=== PATIENT | male | born 1995 ===

== ENCOUNTER 2020-09-29 20:45 | Emergency (ER) | payer OTHER, SELFPAY ==
[2020-09-29 21:07] VITALS: BP 137/89; PULSE 83; RESP 18; TEMP 36.8; O2SAT 97; BMI 33.7
[2020-09-29 21:27] VITALS: BP 137/89; PULSE 83; RESP 18; TEMP 36.8; O2SAT 97
[2020-09-29 21:38] LABS: Glucose Urine UA NEG (NEG); Leukocyte Esterase Urine NEG (NEG); Nitrite Urine NEG (NEG); Specific Gravity - Urine >= 1.030 (1.005-1.025); Urine Blood NEG (NEG); Urine Ketones NEG (NEG); Urine Protein TRACE MG/DL (NEG-TRACE)
[2020-09-29 21:39] LABS: Appearance Urine CLEAR; Color Urine YELLOW
[2020-09-29 21:47] LABS: COVID-19 Test Negative (Negative); IDNOW Serial# 9DD0AD1C
--- NOTE | 2020-09-29 22:22 | ED_ITS ---
HPI - Abdominal Pain General Chief Complaint: Abdominal Pain Stated Complaint: Fever Time Seen by Provider: 09/29/20 21:03 Source: patient Mode of arrival: ambulatory Limitations: no limitations History of Present Illness HPI narrative: Patient had a low-grade fever earlier today and right lower abdominal pain no cough no shortness of breath status post appendectomy. Patient was at work around noon time noticed right lower abdominal cramping pain no nausea no vomiting came home went to bed and felt sweaty checked his temperature was 101 degrees no urinary complaints . Patient denies any COVID symptoms. Had mild headache MD elicited complaint: abdominal pain Related Data Allergies Allergy/AdvReac Type Severity Reaction Status Date / Time amoxicillin [AMOXICILLIN] Allergy Mild HIVES Unverified 03/08/20 16:24 Penicillins [PENICILLINS] Allergy Mild HIVES Unverified 03/08/20 16:24 penicillin V Allergy Unknown Verified 09/17/12 00:00 Review of Systems Review of Systems Constitutional : No Weight loss, +Fever, No Chills ENT/Mouth : No sore throat, No Rhinorrhea Eyes: No Eye Pain, No Swelling Cardiovascular : No Chest Pain, no palpitations Respiratory : No Cough, No Sputum, no shortness of breath Gastrointestinal : no Nausea, No Vomiting, No Diarrhea, + abdominal Pain, no black stools Genitourinary : No Dysuria, No Urinary Frequency Musculoskeletal : No joint pain, No Myalgias, No Joint Swelling Skin : No Skin Lesions, No rash Neuro : No Weakness, No Numbness, No Dizziness, + Headache Psych : No Anxiety/Panic, No Depression Heme/Lymph: No Bruising, No Lymphadenopathy Endocrine : No Polyuria, No Polydipsia All other systems reviewed and are negative Physical Exam Vital Signs: Vital Signs: Last Vital Signs Temp 98.3 F 09/29/20 21:27 Pulse 83 09/29/20 21:27 Resp 18 09/29/20 21:27 BP 137/89 09/29/20 21: Pulse Ox 97 09/29/20 21:27 Body Mass Index 33.7 Appearance: Alert. Oriented X3. No acute distress. Eyes: Pupils equal, round and reactive to light. ENT: Pharynx normal. Neck: Normal inspection. Neck supple. CVS: Normal heart rate and rhythm. Pulses normal. Respiratory: No respiratory distress. Breath sounds normal. Abdomen: Soft mild deep tenderness right lower quadrant no guarding or rebound tenderness Bowel sounds are present, no mass palpable, no CVA tenderness Skin: Skin warm and dry. Normal skin color. Normal skin turgor. Extremities: No lower extremity edema. Neuro: Oriented X 3. No motor deficit. No sensory deficit. MDM - Abdominal Pain MDM Narrative Medical decision making narrative: Patient UA negative COVID-19 negative status post appendectomy came with right lower quadrant pain with low-grade fever at t his time patient afebrile no significant abdominal pain noticed patient refused further lab work at this time as the feeling back to normal. Patient advised to follow with PCP or come to the ER if pain recurs or get worse Lab Data Attestation: I reviewed the patient's lab results. Labs: Lab Results 09/29/20 09/29/20 Range/Units 21:07 21:29 Urine Color YELLOW Urine Appearance CLEAR Urine pH 6.0 (5.0-8.0) Ur Specific [place] >= 1.030 H (1.005-1.025) Urine Protein TRACE (NEG-TRACE) MG/DL Urine Glucose (UA) NEG (NEG) MG/DL Urine Ketones NEG (NEG) MG/DL Urine Blood NEG (NEG) Urine Nitrite NEG (NEG) Ur Leukocyte Esterase NEG (NEG) COVID-19 ([facility]) Negative (Negative) COVID-19 Clin Com See Note Discharge Plan Discharge Clinical Impression: Abdominal pain Patient Disposition: Home, Self-Care Instructions: Abdominal Pain (ED) Additional Instructions: Etiology of abdominal pain is not very clear no cramps. Report to the ER/PCP if pain recurs or get worse/vomiting Your COVID test is negative Stand Alone Forms: Work/School Release Interventions: ED Discharge Assessment Last Done: 09/29/20 22:41 Discharge Date/Time: 09/29/20 22:42 [facility] Past Medical History Surgical History History of appendectomy Social History Social History Alcohol intake: never Smoking Status: Never smoker Use of substances other than those prescribed or required for medical reasons: No Advance Directives: No Advance Directives Information Provided: Yes
== END 2020-09-29 22:42 | disposition home or self-care (01) ==
PROVIDERS: Emergency Provider Internal Medicine; PCP Internal Medicine
DX: R10.31 Right lower quadrant pain (principal); Z20.822 Contact with and (suspected) exposure to COVID-19; R50.9 Fever, unspecified
CPT/HCPCS: 36415; 81003; 87635; 99283; 99284

== ENCOUNTER 2020-10-21 08:34 | Emergency (ER) | payer OTHER, SELFPAY ==
[2020-10-21 09:01] VITALS: BP 131/69; PULSE 100; RESP 18; TEMP 36.5; O2SAT 97; BMI 34.9
--- NOTE | 2020-10-21 09:33 | ED.BACK ---
HPI - Back Pain/Injury General Chief Complaint: Back Pain/Injury Stated Complaint: back pain Time Seen by Provider: 10/21/20 09:33 History of Present Illness HPI Narrative: Patient developed right-sided low back pain similar to prior episodes over the past few days with no known injury, pain radiates to the right upper thigh, no numbness no weakness no changes to bowel or bladder no chest pain no abdominal pain no dysuria Related Data Previous Rx's Medication Instructions Recorded acetaminophen 1,000 mg PO Q6H PRN #30 tab 10/21/20 cyclobenzaprine 5 mg PO TID PRN #14 tab 10/21/20 ibuprofen 600 mg PO Q6H PRN #20 tab 10/21/20 oxycodone 5 mg PO Q6H PRN #10 tab 10/21/20 prednisone 60 mg PO DAILY 4 Days #12 tab 10/21/20 Allergies Allergy/AdvReac Type Severity Reaction Status Date / Time amoxicillin [AMOXICILLIN] Allergy Mild HIVES Verified 10/21/20 09:03 Penicillins [PENICILLINS] Allergy Mild HIVES Verified 10/21/20 09:03 penicillin V Allergy Unknown Swelling Verified 10/21/20 09:03 Review of Systems Review of Systems: Positive for back pain Negatives are no fever no chills no dizziness no weakness no fainting no chest pain no abdominal pain no dysuria no frequency no incontinence no changes to bowel or bladder known numbness or weakness Yes all other systems are reviewed and are negative [facility] Past Medical History Attestation statement: The following information was validated with the patient. [facility] Narrative: Patient had a prior episode of similar back pain 2 years ago after a fall at work Source: nursing notes reviewed Surgical History History of appendectomy Social History Social History Alcohol intake: never Smoking Status: Never smoker Advance Directives: No Advance Directives Information Provided: No Physical Exam Vital Signs: Vital Signs: Last Vital Signs Temp 97.7 F 10/21/20 09:01 Pulse 100 10/21/20 09:01 Resp 18 10/21/20 09:01 BP 131/69 10/21/20 09:01 Pulse Ox 97 10/21/20 09:01 Body Mass Index 34.9 General appearance no acute distress and O x3 cooperative The neck is supple and nontender Chest wall nontender no respiratory distress Abdomen nontender The back had right lower lumbar paraspinal soft tissue tenderness, no focal bony tenderness, no CVA tenderness, pain is easily reproduced with movement and changing position, the skin of the back is normal no wounds no redness no rash Extremities is full range of motion x4 Neuro motor is 5 over 5 times for, sensation is intact and symmetrical, gait is normal, patient can walk on tiptoe, walk on heels and squat Course Course Course Narrative: As pain is similar to patient's prior episode of [place] a and there is some radiating pain i started prednisone and patient is discharged with analgesics muscle relaxer and a work note for 3 days and will follow with primary doctor Discharge Plan Discharge Clinical Impression: Lumbar radiculopathy Patient Disposition: Home, Self-Care Additional Instructions: We are trying prednisone which is a steroid which sometimes reduces inflammation around the nerve which causes pain shooting down the right leg Follow with primary care doctor as needed as physical therapy is often helpful Return any time any worse condition or concerns Prescriptions: New prednisone 20 mg tablet 60 mg PO DAILY 4 Days Qty: 12 RF: 0 oxycodone 5 mg tablet 5 mg PO Q6H PRN (Reason: pain) Qty: 10 RF: 0 acetaminophen 500 mg tablet 1,000 mg PO Q6H PRN (Reason: pain) Qty: 30 RF: 0 cyclobenzaprine 5 mg tablet 5 mg PO TID PRN (Reason: muscle spasm) Qty: 14 RF: 0 ibuprofen 600 mg tablet 600 mg PO Q6H PRN (Reason: pain) Qty: 20 RF: 0 Stand Alone Forms: Work/School Release
[2020-10-21] MEDS: Acetaminophen 325 MG TABLET 975 MG PO (09:51)
[2020-10-21] MEDS: Ketorolac Tromethamine 30 MG/ML VIAL IM (09:51)
[2020-10-21] MEDS: predniSONE 20 MG TABLET 60 MG PO (09:51)
== END 2020-10-21 09:56 | disposition home or self-care (01) ==
PROVIDERS: Emergency Provider Emergency Medicine; PCP Internal Medicine
DX: M54.16 Radiculopathy, lumbar region (principal); M54.5 Low back pain
CPT/HCPCS: 96372; 99283; 99284; J1885

== ENCOUNTER 2021-06-13 09:50 | Emergency (ER) | payer OTHER, SELFPAY ==
--- NOTE | ~2021-06-13 | CT_ITS ---
EXAMINATION: CT ABDOMEN AND PELVIS WITHOUT CONTRAST CLINICAL INFORMATION: Rectal bleeding COMPARISON: CT abdomen and pelvis with contrast 09/23/2016 TECHNIQUE: Multidetector volumetric imaging was performed from the superior aspect of the liver through the pubic symphysis. No oral or intravenous contrast. Sagittal and coronal reformatted images were obtained on the technologist's workstation. This CT examination was performed using dose optimization techniques as appropriate, variously including the following: *Automated exposure control *Adjustment of mA and/or kV according to patient size (this includes techniques or standardized protocols for targeted exams where dose is matched to indication/reason for exam; i.e. extremities or head) *Use of iterative reconstruction technique DLP: 926 mGy-cm FINDINGS: LUNG BASES: The visualized lung bases are unremarkable. LIVER, GALLBLADDER, AND BILIARY TREE: The liver is normal in size and smooth in contour. There is diffuse decreased hepatic parenchymal attenuation consistent with hepatic steatosis. No focal hepatic parenchymal lesion or intrahepatic biliary ductal dilatation. There are several dependent calculi in the gallbladder, largest 5 mm. There is no gallbladder dilatation or wall thickening or pericholecystic inflammatory changes. The common duct is unremarkable. PANCREAS: Unremarkable. SPLEEN: Homogeneous, upper limits of normal, 13 cm sagittal dimension. There is stable splenule left upper quadrant, approximately 2.2 cm. ADRENAL GLANDS: Unremarkable. KIDNEYS AND URETERS: The kidneys are normal in size, shape, and attenuation. No hydronephrosis, hydroureter, or calculi seen. No perinephric stranding. BLADDER: Unremarkable. GASTROINTESTINAL TRACT: There is no bowel obstruction or focal inflammatory changes in the bowel. No bowel wall thickening and pneumatosis or free air. No ascites or fluid collection. The appendix is not demonstrated with certainty and not seen on prior CT 2017. ABDOMINAL WALL: No significant hernia is appreciated. LYMPH NODES: No retroperitoneal or deep pelvic or inguinal lymphadenopathy. There are some small stable mesenteric nodes central and right mesentery similar to prior CT 2017. VASCULAR: Unremarkable. PELVIC VISCERA: Unremarkable. OSSEOUS STRUCTURES: No acute bony abnormality. CT/CT abdomen pelvis wo con IMPRESSION: 1. No bowel obstruction or focal inflammatory changes in the bowel. No ascites or fluid collection. 2. Cholelithiasis. No gallbladder wall thickening or ductal dilatation. 3. Hepatic steatosis.
[2021-06-13 10:25] VITALS: BP 126/76; PULSE 74; RESP 20; TEMP 36.6; O2SAT 98; BMI 33.7
--- NOTE | 2021-06-13 11:01 | ED.GIBLEED ---
HPI - GI Bleed General Chief complaint: GI Bleed Stated complaint: blood in bowel movement Time Seen by Provider: 06/13/21 10:58 Source: patient Mode of arrival: ambulatory Limitations: no limitations History of Present Illness HPI Narrative: 25 years old male came in for evaluation of bright red blood per rectum started this morning. Patient this morning felt the urge to go to the bathroom for bowel movement, had a normal bowel movement when he wiped he notice bright red blood on the paper then looked in the toilet was full of bright red blood, patient do not have abdominal pain, no nausea, no vomiting. No fever, no chills. Related Data Previous Rx's Medication Instructions Recorded acetaminophen 500 mg tablet 1,000 mg PO Q6H PRN #30 tab 10/21/20 cyclobenzaprine 5 mg tablet 5 mg PO TID PRN #14 tab 10/21/20 ibuprofen 600 mg tablet 600 mg PO Q6H PRN #20 tab 10/21/20 oxycodone 5 mg tablet 5 mg PO Q6H PRN #10 tab 10/21/20 prednisone 20 mg tablet 60 mg PO DAILY 4 Days #12 tab 10/21/20 Allergies Allergy/AdvReac Type Severity Reaction Status Date / Time amoxicillin [AMOXICILLIN] Allergy Mild HIVES Verified 10/21/20 09:03 Penicillins [PENICILLINS] Allergy Mild HIVES Verified 10/21/20 09:03 penicillin V Allergy Unknown Swelling Verified 10/21/20 09:03 Review of Systems Review of Systems: All other systems are reviewed and are negative Constitutional: Reports as per HPI and Reports no additional constitutional complaints Eyes: Reports as per HPI and Reports no additional eye complaints Reports system reviewed and no additional complaints, except as documented Cardiovascular: Reports as per HPI and Reports no additional cardiovascular complaints Respiratory: Reports as per HPI and Reports no additional respiratory complaints Gastrointestinal: Reports as per HPI and Reports no additional gastrointestinal complaints Genitourinary: Reports no additional female genitourinary complaints Musculoskeletal: Reports no additional musculoskeletal complaints Skin/Breast: Reports system reviewed and no additional complaints, except as docu Psychiatric: Reports no additional psychiatric complaints Endocrine: Reports no additional endocrine complaints Hematologic/Lymphatic: Reports no additional hematologic/lymphatic complaints Allergic/Immunologic: Reports no additional allergic/immunologic complaints Reports system reviewed and no additional complaints, except as documented and Reports Abnormal speech present [facility] Past Medical History Surgical History History of appendectomy Social History Social History Alcohol intake: never Patient Tobacco Use Status: Never used Tobacco Use of substances other than those prescribed or required for medical reasons: No Advance Directives: No Advance Directives Information Provided: Yes Physical Exam Vital Signs: Vital Signs: Last Vital Signs Temp 98 F 06/13/21 10:25 Pulse 76 06/13/21 11:47 Resp 16 06/13/21 11:47 BP 115/64 06/13/21 11:47 Pulse Ox 98 06/13/21 11:47 BMI result Body Mass Index 33.7 Vital signs have been reviewed as appeared to be correct. Blood pressure normal. Heart rate normal. Respiration rate normal. Temperature normal. Oxygen saturation normal. Appearance: Alert. Oriented X3. No acute distress. Head: Normal external exam. Normocephalic. Atraumatic. No Snyder signs noted. No raccoon eyes noted Eyes: PERRLA. EOMI. Conjunctiva and sclera normal. Eyelids normal. ENT: TM's Normal. Pharynx normal. Uvula midline. Moist mucous membranes. No trismus noted. No drooling noted. No muffled voice noted. Neck: Normal inspection. Neck supple. FROM. No adenopathy. Thyroid Normal. No meningeal signs. No neck mass noted. CVS: Normal heart rate and rhythm. Heart sound normal. No murmurs noted. Pulses normal throughout. Respiratory: No respiratory distress. Painless inspiration. Breath sounds normal. No wheezes/rales/rhonchi noted. Chest nontender. No accessory muscle usage noted or decreased air movement noted. Abdomen: Soft and nontender. Bowel sounds normal in all 4 quadrants. No distention noted. No organomegaly noted. No visible injury noted. Rectal exam: No external hemorrhoids is visualized, no internal hemorrhoids was palpated, no romeo blood. Back: No CVA tenderness. Full range of motion noted. Skin: Skin warm and dry. Normal skin color. Normal skin turgor. No rashes/lesions/lacerations noted. Extremities: No lower extremity edema. Extremities exhibit normal range of motion. Extremities nontender. Neuro: Oriented X 3. Cranial nerve exam: II-XII are grossly intact No motor deficit. No sensory deficit. Reflexes normal. Course Course Course Narrative: Assessment and plan. 25-year-old male came in with bright red blood per rectum, on exam patient hemodynamically stable, asymptomatic, rectal exam is unremarkable. Patient had a CT of the abdomen pelvis which showed no colitis, stable H&H. No active bleeding at this point. Patient was reassured if symptoms reoccur to follow up with PCP or come back to the emergency department. Patient also was instructed to drink plenty of fluid. MDM - GI Bleed Lab Data Attestation: I reviewed the patient's lab results. Result diagrams: 06/13/21 11:40 06/13/21 11:40 Labs: Lab Results 06/13/21 06/13/21 06/13/21 Range/Units 11:40 11:40 11:50 WBC 6.5 (4.8-10.8) X10*3/uL RBC 5.38 (4.60-5.80) X10*6/uL Hgb 15.4 (14.0-18.0) g/dl Hct 44.8 (42.0-52.0) % MCV 83.3 (80.0-98.0) fL MCH 28.6 (27.0-33.0) pg MCHC 34.4 (31.0-36.0) g/dl RDW 12.1 (11.0-16.0) % Plt Count 279 (160-400) X10*3/uL MPV 9.8 (9.4-12.4) fL Immature Gran % (Auto) 0.3 (0.0-0.4) % Neut % (Auto) 59.8 (45-73) % Lymph % (Auto) 29.6 (20-40) % Door % (Auto) 8.1 (2-11) % Eos % (Auto) 1.4 (0-4) % Baso % (Auto) 0.8 (0-2) % Lymph # (Auto) 1.9 (1.2-4.9) X10*3/uL [place] # (Auto) 0.5 (0.1-1.2) X10*3/uL Eos # (Auto) 0.1 (0.0-0.4) X10*3/uL Baso # (Auto) 0.1 (0.0-0.2) X10*3/uL Abs Immat Gran (auto) 0.02 (0.00-0.03) X10*3/uL Absolute Neuts (auto) 3.9 (2.0-8.3) x10*3/uL Absolute Nucleated RBC 0.000 (0.0-0.012) X10*3/uL Nucleated RBC % (auto) 0.0 (0.0-0.2) /100WBC Sodium 141 (135-145) mmol/L Potassium 4.4 (3.3-5.1) mmol/L Chloride 106 (96-108) mmol/L Carbon Dioxide 28 (22-29) mmol/L Anion Gap 11 L (12-20) BUN 10 (9-16) mg/dL Creatinine 0.87 (0.5-1.4) mg/dL Estim Creat Clear Calc 168.4 Estimated GFR > 60 Random Glucose 91 (60-115) mg/dL Calcium 9.9 (8.4-10.2) mg/dL Total Bilirubin 0.8 (0.0-1.0) mg/dL Direct Bilirubin 0.3 (0.0-0.5) mg/dL AST 34 (5-37) U/L ALT 66 H (0-40) U/L Alkaline Phosphatase 62 (39-117) U/L Total Protein 7.8 (6.5-8.0) g/dL Albumin 4.6 (3.5-5.0) g/dL Lipase 18 (8-78) U/L Stool Occult Blood NEGATIVE (NEGATIVE) Imaging Data CT scan - abdomen: Attestation: I personally reviewed and interpreted this imaging study as follows: Radiologist's impression: 1. No bowel obstruction or focal inflammatory changes in the bowel. No ascites or fluid collection. 2. Cholelithiasis. No gallbladder wall thickening or ductal dilatation. 3. Hepatic steatosis.? Discharge Plan Discharge Clinical Impression: Bright red rectal bleeding Patient Disposition: Home, Self-Care Instructions: Rectal Bleeding (ED) Prescriptions: No Action prednisone 20 mg tablet 60 mg PO DAILY 4 Days Qty: 12 RF: 0 oxycodone 5 mg tablet 5 mg PO Q6H PRN (Reason: pain) Qty: 10 RF: 0 acetaminophen 500 mg tablet 1,000 mg PO Q6H PRN (Reason: pain) Qty: 30 RF: 0 cyclobenzaprine 5 mg tablet 5 mg PO TID PRN (Reason: muscle spasm) Qty: 14 RF: 0 ibuprofen 600 mg tablet 600 mg PO Q6H PRN (Reason: pain) Qty: 20 RF: 0 Referrals: Physician,Unknown J [Primary Care Provider] - 2 days
[2021-06-13 11:43] LABS: MANUAL DIFF FLAG NO
[2021-06-13 11:47] VITALS: BP 115/64; PULSE 76; RESP 16; O2SAT 98
[2021-06-13 11:47] LABS: Basophils Absolute Auto 0.1 X10*3/uL (0.0-0.2); Basophils Percent Auto 0.8 % (0-2); Eosinophils Absolute Auto 0.1 X10*3/uL (0.0-0.4); Eosinophils Percent Auto 1.4 % (0-4); Hematocrit 44.8 % (42.0-52.0); Hemoglobin 15.4 g/dl (14.0-18.0); Imm Gran Abs Auto 0.02 X10*3/uL (0.00-0.03); Imm Gran Pct Auto 0.3 % (0.0-0.4); Lymphocytes Absolute Auto 1.9 X10*3/uL (1.2-4.9); Lymphocytes Percent Auto 29.6 % (20-40); Mean Corpuscular HGB Conc 34.4 g/dl (31.0-36.0); Mean Corpuscular Hemoglobin 28.6 pg (27.0-33.0); Mean Corpuscular Volume 83.3 fL (80.0-98.0); Mean Platelet Volume 9.8 fL (9.4-12.4); Monocytes Absolute Auto 0.5 X10*3/uL (0.1-1.2); Monocytes Percent Auto 8.1 % (2-11); Neutrophils Absolute Auto 3.9 x10*3/uL (2.0-8.3); Neutrophils Percent Auto 59.8 % (45-73); Platelet Count 279 X10*3/uL (160-400); Red Blood Count 5.38 X10*6/uL (4.60-5.80); Red Cell Distribution Width 12.1 % (11.0-16.0); White Blood Count 6.5 X10*3/uL (4.8-10.8)
[2021-06-13 11:54] LABS: OBS Int Ctl Valid YES; OBS1 NEGATIVE (NEGATIVE)
[2021-06-13 12:02] LABS: Alanine Aminotransferase 66 U/L (0-40); Albumin Level 4.6 g/dL (3.5-5.0); Alkaline Phosphatase 62 U/L (39-117); Anion Gap 11 (12-20); Aspartate Amino Transferase 34 U/L (5-37); Bilirubin Direct 0.3 mg/dL (0.0-0.5); Bilirubin Total 0.8 mg/dL (0.0-1.0); Blood Urea Nitrogen 10 mg/dL (9-16); Calcium 9.9 mg/dL (8.4-10.2); Carbon Dioxide 28 mmol/L (22-29); Chloride 106 mmol/L (96-108); Creatinine Clr Calc Pharmacy 168.4; Estimated Glomerular Filt Rate > 60; Glucose Random 91 mg/dL (60-115); Lipase 18 U/L (8-78); Potassium 4.4 mmol/L (3.3-5.1); Sodium 141 mmol/L (135-145); Total Protein 7.8 g/dL (6.5-8.0)
== END 2021-06-13 13:30 | disposition home or self-care (01) ==
PROVIDERS: Emergency Provider Emergency Medicine
DX: K62.5 Hemorrhage of anus and rectum (principal)
CPT/HCPCS: 36415; 74176; 80048; 80076; 82272; 83690; 85025; 99284

== ENCOUNTER 2021-06-22 12:19 | Outpatient (REF) | payer OTHER, SELFPAY ==
[2021-06-22 12:52] LABS: Binax Now Covid-19 Ag Negative (Negative)
[2021-06-22 12:53] LABS: Binax Internal Control QC Valid; Binax Lot number: 9864
== END 2021-06-22 12:20 | disposition home or self-care (01) ==
LOC: HO.LAB 12:19
PROVIDERS: Visit Provider Internal Medicine
DX: Z20.822 Contact with and (suspected) exposure to COVID-19 (principal)
CPT/HCPCS: 36415; C9803

== ENCOUNTER 2021-10-22 15:35 | Emergency (ER) | payer OTHER, SELFPAY ==
--- NOTE | 2021-10-22 | ECG_ITS ---
Test Reason : chest pain Blood Pressure : / mmHG Vent. Rate : 086 BPM Atrial Rate : 086 BPM P-R Int : 166 ms QRS Dur : 080 ms QT Int : 358 ms P-R-T Axes : 028 044 032 degrees QTc Int : 428 ms Normal sinus rhythm Normal ECG No previous ECGs available Referred By: Generic ED Physician Electronically Signed By:Maximo Villalobos
--- NOTE | ~2021-10-22 | XR_ITS ---
EXAMINATION: XR CHEST CLINICAL INFORMATION: Chest pain COMPARISON: Previous chest x-ray November 2017 TECHNIQUE: Frontal view of the chest was obtained. FINDINGS: No significant abnormality is noted involving the heart, lungs, mediastinum, bony thorax or soft tissues. XR/XR chest 1V IMPRESSION: Unremarkable examination.
[2021-10-22 16:29] VITALS: BP 118/80; PULSE 90; RESP 18; TEMP 36.9; O2SAT 98; BMI 30.1
[2021-10-22 16:40] LABS: MANUAL DIFF FLAG NO
[2021-10-22 16:43] LABS: Basophils Absolute Auto 0.1 X10*3/uL (0.0-0.2); Basophils Percent Auto 0.7 % (0-2); Eosinophils Absolute Auto 0.2 X10*3/uL (0.0-0.4); Eosinophils Percent Auto 2.2 % (0-4); Hematocrit 42.8 % (42.0-52.0); Imm Gran Abs Auto 0.03 X10*3/uL (0.00-0.03); Imm Gran Pct Auto 0.4 % (0.0-0.4); Lymphocytes Absolute Auto 2.1 X10*3/uL (1.2-4.9); Lymphocytes Percent Auto 28.4 % (20-40); Mean Corpuscular Hemoglobin 29.2 pg (27.0-33.0); Mean Corpuscular Volume 83.3 fL (80.0-98.0); Mean Platelet Volume 9.8 fL (9.4-12.4); Monocytes Absolute Auto 0.6 X10*3/uL (0.1-1.2); Monocytes Percent Auto 8.4 % (2-11); Neutrophils Absolute Auto 4.3 x10*3/uL (2.0-8.3); Neutrophils Percent Auto 59.9 % (45-73); Platelet Count 261 X10*3/uL (160-400); Red Blood Count 5.14 X10*6/uL (4.60-5.80); Red Cell Distribution Width 12.3 % (11.0-16.0); White Blood Count 7.2 X10*3/uL (4.8-10.8)
[2021-10-22 16:58] LABS: Anion Gap 13 (12-20); Blood Urea Nitrogen 13 mg/dL (9-16); Calcium 9.5 mg/dL (8.4-10.2); Carbon Dioxide 24 mmol/L (22-29); Chloride 107 mmol/L (96-108); Creatinine Clr Calc Pharmacy 149.7; Estimated Glomerular Filt Rate > 60; Glucose Random 103 mg/dL (60-115); Potassium 3.8 mmol/L (3.3-5.1); Sodium 140 mmol/L (135-145)
[2021-10-22 17:04] LABS: Troponin-I High Sensitivity < 3.5 ng/L (<3.5-35.0)
--- NOTE | 2021-10-22 23:09 | ED.CHESTPAIN ---
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 noticed sharp pain in left costochondral area since 11:00 radiated to left shoulder sharp in character no shortness of breath no cough no diaphoresis no nausea vomiting no use of cocaine never had similar pain in the past Related Data Previous Rx's Medication Instructions Recorded acetaminophen 500 mg tablet 1,000 mg PO Q6H PRN #30 tab 10/21/20 cyclobenzaprine 5 mg tablet 5 mg PO TID PRN #14 tab 10/21/20 ibuprofen 600 mg tablet 600 mg PO Q6H PRN #20 tab 10/21/20 oxycodone 5 mg tablet 5 mg PO Q6H PRN #10 tab 10/21/20 prednisone 20 mg tablet 60 mg PO DAILY 4 Days #12 tab 10/21/20 ibuprofen 600 mg tablet 600 mg PO Q6H PRN #20 tab 10/22/21 Allergies Allergy/AdvReac Type Severity Reaction Status Date / Time amoxicillin [AMOXICILLIN] Allergy Mild HIVES Verified 10/22/21 16:29 Penicillins [PENICILLINS] Allergy Mild HIVES Verified 10/22/21 16:29 penicillin V Allergy Unknown Swelling Verified 10/22/21 16:29 Review of Systems Review of Systems: Yes all other systems are reviewed and are negative [facility] Past Medical History Surgical History History of appendectomy Social History Social History Alcohol intake: never Patient Tobacco Use Status: Never used Tobacco Advance Directives: No Physical Exam Vital Signs: Vital Signs: Last Vital Signs Temp 98.4 F 10/22/21 16:29 Pulse 90 10/22/21 16:29 Resp 18 10/22/21 16:29 BP 118/80 10/22/21 16:29 Pulse Ox 98 10/22/21 16:29 BMI result Body Mass Index 30.1 Appearance: Alert. Oriented X3. No acute distress. ENT: Pharynx normal. Oral Mucosa moist Neck: Normal inspection. Neck supple. CVS: Normal heart rate and rhythm. Pulses normal. Respiratory: No respiratory distress. Equal air entry bilateral, no wheezing/rales/rhonchi 2nd inter costal cartilage tenderness on the left side Abdomen: Soft and nontender. Bowel sounds are present, Skin: Skin warm and dry. Normal skin color. Normal skin turgor. Extremities: No lower extremity edema. No calf tenderness Neuro: Oriented X 3. MDM - Chest Pain MDM Narrative Medical decision making narrative: Patient 25 years of no risk factor for coronary disease comes with sharp chest pain clinical costal chondritis, EKG normal high sensitive troponin negative Lab Data Attestation: I reviewed the patient's lab results. Result diagrams: 10/22/21 16:35 10/22/21 16:35 Labs: Lab Results 10/22/21 10/22/21 10/22/21 Range/Units 16:35 16:35 16:36 WBC 7.2 (4.8-10.8) X10*3/uL RBC 5.14 (4.60-5.80) X10*6/uL Hgb 15.0 (14.0-18.0) g/dl Hct 42.8 (42.0-52.0) % MCV 83.3 (80.0-98.0) fL MCH 29.2 (27.0-33.0) pg MCHC 35.0 (31.0-36.0) g/dl RDW 12.3 (11.0-16.0) % Plt Count 261 (160-400) X10*3/uL MPV 9.8 (9.4-12.4) fL Immature Gran % (Auto) 0.4 (0.0-0.4) % Neut % (Auto) 59.9 (45-73) % Lymph % (Auto) 28.4 (20-40) % [place] % (Auto) 8.4 (2-11) % Eos % (Auto) 2.2 (0-4) % Baso % (Auto) 0.7 (0-2) % Lymph # (Auto) 2.1 (1.2-4.9) X10*3/uL [place] # (Auto) 0.6 (0.1-1.2) X10*3/uL Eos # (Auto) 0.2 (0.0-0.4) X10*3/uL Baso # (Auto) 0.1 (0.0-0.2) X10*3/uL Abs Immat Gran (auto) 0.03 (0.00-0.03) X10*3/uL Absolute Neuts (auto) 4.3 (2.0-8.3) x10*3/uL Absolute Nucleated RBC 0.000 (0.0-0.012) X10*3/uL Nucleated RBC % (auto) 0.0 (0.0-0.2) /100WBC Sodium 140 (135-145) mmol/L Potassium 3.8 (3.3-5.1) mmol/L Chloride 107 (96-108) mmol/L Carbon Dioxide 24 (22-29) mmol/L Anion Gap 13 (12-20) BUN 13 (9-16) mg/dL Creatinine 0.90 (0.5-1.4) mg/dL Estim Creat Clear Calc 149.7 Estimated GFR > 60 Random Glucose 103 (60-115) mg/dL Calcium 9.5 (8.4-10.2) mg/dL Troponin I High Sens < 3.5 (<3.5-35.0) ng/L ECG Data ECG #1: Attestation: I personally reviewed and interpreted this ECG as follows: Interpretation: Normal sinus rhythm heart rate 86 beats per minute normal interval normal axis no acute distress impression normal EKG Discharge Plan Discharge Clinical Impression: Costalchondritis Patient Disposition: Home, Self-Care Instructions: Costochondritis (ED) Additional Instructions: The chest pain is from the inflammation of the cartilage Take pain medication as prescribed Follow with PCP if any concerns Prescriptions: New ibuprofen 600 mg tablet 600 mg PO Q6H PRN (Reason: pain) Qty: 20 0RF No Action prednisone 20 mg tablet 60 mg PO DAILY 4 Days Qty: 12 0RF oxycodone 5 mg tablet 5 mg PO Q6H PRN (Reason: pain) Qty: 10 0RF Rx Instructions: Narcotic, no driving for 6 hours after taking this medication acetaminophen 500 mg tablet 1,000 mg PO Q6H PRN (Reason: pain) Qty: 30 0RF cyclobenzaprine 5 mg tablet 5 mg PO TID PRN (Reason: muscle spasm) Qty: 14 0RF Rx Instructions: This medication may cause drowsiness so no driving for 8 hours after taking ibuprofen 600 mg tablet 600 mg PO Q6H PRN (Reason: pain) Qty: 20 0RF Interventions: ED Discharge Assessment Last Done: 10/22/21 23:24 Discharge Date/Time: 10/22/21 23:25
[2021-10-22] MEDS: Ibuprofen 800 MG TABLET PO (23:22)
== END 2021-10-22 23:25 | disposition home or self-care (01) ==
LOC: HO.ED 23:21
PROVIDERS: Emergency Provider Internal Medicine
DX: M94.0 Chondrocostal junction syndrome [Tietze] (principal); R07.89 Other chest pain; Z79.899 Other long term (current) drug therapy
CPT/HCPCS: 36415; 71045; 80048; 84484; 85025; 93005; 99283

== ENCOUNTER 2023-01-17 02:17 | Emergency (ER) | payer OTHER, SELFPAY | END 2023-01-17 02:40 | disposition left against medical advice (07) | PROVIDERS: Emergency Provider Emergency Medicine | DX: R06.00 Dyspnea, unspecified (principal) ==

== ENCOUNTER 2023-07-22 10:40 | Emergency (ER) | payer OTHER, SELFPAY ==
--- NOTE | ~2023-07-22 | CT_ITS ---
EXAMINATION: CT CERVICAL SPINE WITHOUT CONTRAST CLINICAL INFORMATION: Fall. Neck pain COMPARISON: None TECHNIQUE: Thin section axial images are obtained, with sagittal and coronal reformats. This CT examination was performed using dose optimization techniques as appropriate, variously including the following: *Automated exposure control *Adjustment of mA and/or kV according to patient size (this includes techniques or standardized protocols for targeted exams where dose is matched to indication/reason for exam; i.e. extremities or head) *Use of iterative reconstruction technique DLP: 675 mGy-cm FINDINGS: No fracture or destructive process or alignment abnormality. Prevertebral soft tissues normal. Vertebral body heights and disc space heights preserved. Lung apices clear. CT/CT cervical spine wo IV con IMPRESSION: Unremarkable examination. Fleischner guidelines were followed.
--- NOTE | ~2023-07-22 | CT_ITS ---
EXAMINATION: CT HEAD WITHOUT CONTRAST CLINICAL INFORMATION: Fall. Head strike. COMPARISON: None available. TECHNIQUE: Contiguous axial imaging was performed from the skull base to vertex without intravenous administration of contrast. This CT examination was performed using dose optimization techniques as appropriate, variously including the following: *Automated exposure control *Adjustment of mA and/or kV according to patient size (this includes techniques or standardized protocols for targeted exams where dose is matched to indication/reason for exam; i.e. extremities or head) *Use of iterative reconstruction technique DLP: 746 mGy-cm FINDINGS: No intra or extra-axial fluid collection, hemorrhage, mass, or mass effect. Sulci and ventricles normal. Calvarium intact. CT/CT head/brain wo IV con IMPRESSION: No acute intracranial pathology.
[2023-07-22 10:42] VITALS: BP 136/88; PULSE 86; RESP 16; TEMP 36.6; O2SAT 98; BMI 34.9
--- NOTE | 2023-07-22 11:41 | ED_ITS ---
HPI - General Adult General Chief complaint: Head Injury Stated complaint: Head Pain S/P Fall 07/22/23 Time Seen by Provider: 07/22/23 11:16 Source: patient Mode of arrival: ambulatory Limitations: no limitations History of Present Illness HPI narrative: Patient is a 27 yr old male with no significant past medical history presenting status post unwitnessed fall this morning after slipping on ice. Reports he fell backwards and hit his head on the step of his truck. Denies LOC. Reports nausea and dizziness with an episode of a shart immediately after the fall. Currently has an 8/10 pressure-like headache on the left side of the head. Denies vision changes, hearing changes, saddle paresthesias, numbness/tingling in upper and lower extremities. Reports lower right sided back pain. States he had a back injury as a child from a fall in the same area, and feels like he tweaked it. Denies radiation of back pain. Additionally, patient reports from the fall he scraped his right knee on the door of his truck. Reports mild pain and swelling, but denies reduced ROM, or numbness/tingling. Related Data Previous Rx's Medication Instructions Recorded acetaminophen 500 mg tablet 1,000 mg (2 x 500 mg) PO Q6H PRN 10/21/20 pain #30 tabs cyclobenzaprine 5 mg tablet 5 mg PO TID PRN muscle spasm #14 10/21/20 tabs ibuprofen 600 mg tablet 600 mg PO Q6H PRN pain #20 tabs 10/21/20 oxycodone 5 mg tablet 5 mg PO Q6H PRN pain #10 tabs 10/21/20 prednisone 20 mg tablet 60 mg (3 x 20 mg) PO DAILY 4 days 10/21/20 #12 tabs ibuprofen 600 mg tablet 600 mg PO Q6H PRN pain #20 tabs 10/22/21 acetaminophen 325 mg capsule 325 mg PO Q4H PRN pain #30 caps 07/22/23 (Tylenol) cyclobenzaprine 10 mg tablet 10 mg PO BEDTIME PRN muscle spasm 07/22/23 #7 tabs lidocaine 5 % topical patch 1 patch topical DAILY PRN pain #15 07/22/23 ea Allergies Allergy/AdvReac Type Severity Reaction Status Date / Time amoxicillin [AMOXICILLIN] Allergy Mild HIVES Verified 10/22/21 16:29 Penicillins [PENICILLINS] Allergy Mild HIVES Verified 10/22/21 16:29 penicillin V Allergy Unknown Swelling Verified 10/22/21 16:29 Review of Systems Review of Systems: Constitutional : No Weight loss, No Fever, No Chills, No Fatigue, No Malaise ENT/Mouth : No sore throat, No Rhinorrhea Eyes: No Eye Pain, No Swelling, No Redness Cardiovascular : No Chest Pain, No SOB, No Dyspnea on Exertion, No Orthopnea, No Edema, No Palpitations Respiratory : No Cough, No Sputum, No Wheezing Gastrointestinal : No Nausea, No Vomiting, No Diarrhea, No Constipation, No abdominal Pain, No Hematochezia, No Melena Genitourinary : No Dysuria, No Urinary Frequency, No Hematuria, Musculoskeletal : + right knee pain and edema. No joint pain, No Myalgias, No Joint Swelling Skin : No Skin Lesions, No rash Neuro : No Weakness, No Numbness, No Dizziness, + Headache Psych : No Anxiety/Panic, No Depression Heme/Lymph: No Bruising, No Bleeding,No Lymphadenopathy Endocrine : No Polyuria, No Polydipsia All other systems reviewed and are negative Yes all other systems are reviewed and are negative [facility] Past Medical History Attestation statement: The following information was validated with the patient. Source: old records reviewed and nursing notes reviewed Surgical History History of appendectomy Social History Social History Alcohol intake: never Patient Tobacco Use Status: Never used Tobacco Advance Directives: No Advance Directives Information Provided: No Physical Exam ED Vital Signs: Vital Signs - 24 hr 07/22/23 10:42 Temperature 98 F Pulse Rate 86 Respiratory Rate 16 Blood Pressure 136/88 Pulse Oximetry 98 Oxygen Delivery Method Room Air BMI result Body Mass Index 34.9 vss Appearance: Alert.? Oriented X3.? No acute distress.? Head: Normocephalic, atraumatic, no step-offs or deformities Eyes: Pupils equal, round and reactive to light.?EOMI pain free. ENT: Pharynx normal.??External ears normal, TMs normal bilaterally and EAC's normal. No hemotympanum. Nasal passage without obstruction, no septal hematoma. Neck: Normal inspection.? Neck supple.?No tenderness to palpation. Pain with rotation to right side. ROM intact. CVS: Normal heart rate and rhythm.? Pulses normal.? Respiratory: No respiratory distress.? Breath sounds normal.? Abdomen: Soft and nontender.? Skin: Skin warm and dry.? Normal skin color.? Normal skin turgor.? Extremities: No lower extremity edema.? No calf ttp. 5/5 strength to bilateral upper and lower extremities. Abrasion and mild edema to the inferior right knee. No bleeding or joint effusion. Full ROM of bilateral knees. Back: Mild tenderness to palpation of right lower back paraspinous region. No midline tenderness, no C-spine tenderness, full range of motion, no CVA tenderness bilaterally Neuro: Oriented X 3.? No motor deficit.? No sensory deficit. CN 2-12 intact. Negative Romberg. Normal finger to nose, heel to wilson, steady tandem gait w/ normal coordination . No saddle anesthesia or paresthesias. Course Reevaluation(s) Reevaluation #1: 27 yr old male s/p fall after hitting head on the step of his truck. Reports nausea, dizziness and one episode of stool incontinence after fall. Currently has 8/10 left sided headache and given Tylenol. Head CT scan ordered. Time: 12:15 Reevaluation #2: CT head and cervical spine no acute intracranial pathology. Cervical spine unremarkable. No fracture, dislocation or traumatic subluxation noted. 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 Ambulating with steady gait normal coordination. Not having urinary or bowel incontinence/retention at this time. No saddle paresthesias. Pain improved will discharge home with Tylenol and cyclobenzaprine. I did have a long c onversation with my attending about this presentation who agrees with my diagnosis and treatment plan history and physical exam unlikely for cauda equina or cord compression. Time: 13:53 Medications Administered Discontinued Medications Generic Name Dose Route Start Last Admin Trade Name Freq PRN Reason Stop Dose Admin Acetaminophen 975 mg 07/22/23 12:01 07/22/23 12:49 Acetaminophen 325 Mg Tablet PO 07/22/23 12:02 975 mg ONCE ONE Administration Medical Decision Making Medical Decision Making MDM Narrative: Patient is a 27 yr old male with previous thoracic back injury presenting status post fall this morning after slipping on ice and hitting his head. Reports nausea, dizziness and one episode of shart when he fell. Reports right sided neck pain with movement, abrasion and edema of inferior right knee, 8/10 left sided headache. PE significant for abrasion and edema of the inferior right knee. Neuro exam benign. Pain with rotation to righ side of neck. Most likely concussion vs muscle strain. Unlikely intracranial hemorrhage, stroke, posterior stroke, spinal fx, Cauda equina, cord compresison. No signs of traumatic injury to chest, abd/pelvis. Plan imaging, pain control. Differential Diagnosis Differential Diagnoses: The differential diagnosis associated with the presentation includes Most likely concussion vs muscle strain. Unlikely intracranial hemorrhage, stroke, posterior stroke, spinal fx, Cauda equina, cord compresison. . No signs of traumatic injury to chest, abd/pelvis. Admission/Observation Consideration of admission/observation: Escalation of care including admission/observation considered Lab Data MDM Lab Attestation statement: I reviewed the patient's lab results. Independent Interpretation I performed an independent interpretation of an: CT Scan Radiology Impression Discussion of test interpretation with radiology: I have reviewed the radiologist's reading. External Record Review External record reviewed: Inpatient record, Office record and Primary care record Tests considered The following testing was considered but not selected: Full painless range of motion to right knee with no point tenderness on exam unlikely fracture dislocation. Ambulatory with steady gait without difficulty. No neurovascular compromise no indication for imaging at this time. Prescription Management I considered prescription management with: Pain Medication Critical Care Time Critical Care Time Critical Care Time: No Discharge Plan Discharge Clinical Impression: Fall, Headache, Abrasion of knee, right, Neck pain, Lower back pain, Concussion without loss of consciousness Patient Disposition: Home, Self-Care Instructions: Post Concussion Syndrome (ED), Neck Pain (ED) Additional Instructions: Take your medications as prescribed. If you were prescribed antibiotics today, it is important that you take your medication to their entirety, do not skip any doses, do not finish them early. Follow-up with your primary care provider this week. Return to the emergency department with new or worsening symptoms. In case of emergency call 911 CT/CT cervical spine wo IV con IMPRESSION: Unremarkable examination. Fleischner guidelines were followed. CT/CT head/brain wo IV con IMPRESSION: No acute intracranial pathology. Prescriptions: New acetaminophen [Tylenol] 325 mg capsule 325 mg PO Q4H PRN (Reason: pain) Qty: 30 0RF cyclobenzaprine 10 mg tablet 10 mg PO BEDTIME PRN (Reason: muscle spasm) Qty: 7 0RF lidocaine 5 % adhesive patch,medicated 1 patch topical DAILY PRN (Reason: pain) Qty: 15 0RF Rx Instructions: leave on most painful area for up to 12 hrs No Action prednisone 20 mg tablet 60 mg PO DAILY 4 Days Qty: 12 0RF oxycodone 5 mg tablet 5 mg PO Q6H PRN (Reason: pain) Qty: 10 0RF Rx Instructions: Narcotic, no driving for 6 hours after taking this medication acetaminophen 500 mg tablet 1,000 mg PO Q6H PRN (Reason: pain) Qty: 30 0RF cyclobenzaprine 5 mg tablet 5 mg PO TID PRN (Reason: muscle spasm) Qty: 14 0RF Rx Instructions: This medication may cause drowsiness so no driving for 8 hours after taking ibuprofen 600 mg tablet 600 mg PO Q6H PRN (Reason: pain) Qty: 20 0RF ibuprofen 600 mg tablet 600 mg PO Q6H PRN (Reason: pain) Qty: 20 0RF Referrals: Physician,None [Primary Care Provider] - 2 days Stand Alone Forms: Work/School Release
[2023-07-22] MEDS: Acetaminophen 325 MG TABLET 975 MG PO (12:49)
--- NOTE | 2023-07-22 12:49 | PC.NURSE ---
patient a&ox3, c/o 03/01 headache, pt medicated for pain per order, call gomez withinr each, will continue to monitor
[2023-07-22 13:55] VITALS: BP 138/82; PULSE 81; RESP 16; TEMP 36.8; O2SAT 98
== END 2023-07-22 13:56 | disposition home or self-care (01) ==
PROVIDERS: Emergency Provider Emergency Medicine Emergency Medical Services
DX: S06.0X0A Concussion without loss of consciousness, initial encounter (principal); S80.211A Abrasion, right knee, initial encounter; W00.0XXA Fall on same level due to ice and snow, initial encounter; R51.9 Headache, unspecified; M54.50 Low back pain, unspecified; Y93.89 Activity, other specified; Y92.812 Truck as the place of occurrence of the external cause; Y99.9 Unspecified external cause status
CPT/HCPCS: 70450; 72125; 99284

== ENCOUNTER 2023-12-15 10:58 | Outpatient (AMB) | payer OTHER, SELFPAY ==
[2023-12-15 11:01] VITALS: BP 116/72; PULSE 78; RESP 14; TEMP 36.5; O2SAT 99; BMI 35.3
--- NOTE | 2023-12-15 11:01 | A.OFFPC_ITS ---
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 Accompanied by: Self / Same As Patient Allergies Seasonal Allergies Allergy (Intermediate, Verified 12/15/23 11:20) Sneezing amoxicillin [AMOXICILLIN] Allergy (Mild, Verified 12/15/23 11:20) HIVES Penicillins [PENICILLINS] Allergy (Mild, Verified 12/15/23 11:20) HIVES penicillin V Allergy (Unknown, Verified 12/15/23 11:20) Swelling Medication List - Last Reconciled 12/15/23 by Racquel Rojas CNP No Known Home Meds Tobacco use date assessed: 12/15/23 Dental Screening Dental Screen Date: 12/15/23 Did you have a dental visit in the last 12 months?: Yes Did you have a dental problem in the last 6 months where you did not have access to dental care?: No Was dental information given to patient?: Patient has dentist HPI HPI Comments History of Present Illness Details New patient Prior PCP:?[facility] Last office visit/CPE: About 5 years Acute issue(s): No significant past medical history No acute symptoms at this time PMHx: None SurgHx: Appendectomy FHx: None SocHx: Nonsmoker. Drinks alcohol occasionally. No recreation drugs He notes that he is sexually active, in a monogamous relationship, and has no concern for STD He states that he is uncircumcised. He has history of irritation to the head of his penis which improves after showering. No acute symptoms. 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 He does not have time to exercise. 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 1. Little interest or pleasure in doing things: more than half the days 2. Feeling down, depressed, or hopeless: several days 3. Trouble falling or staying asleep, or sleeping too much: not at all 4. Feeling tired or having little energy: several days 5. Poor appetite or overeating: not at all 6. Feeling bad about yourself - or that you are a failure or have let yourself or your family down: not at all 7. Trouble concentrating on things, such as reading the newspaper or watching television: not at all 8. Moving or speaking so slowly that other people could have noticed. Or the opposite - being so fidgety or restless that you have been moving around a lot more than usual: not at all 9. Thoughts that you would be better off or of hurting yourself in some way: not at all Total score: 4 Depression Screening Interpretation: Negative Depression Screening Done: Yes 13839 - PHQ-9 Billing: Yes Source: Developed by Drs. Ronald Barajas, Nury Rubi, Cortes Giraldo and colleagues, with an educational stefano from [employer]. Thrive Questionnaire Date Thrive assessed: 12/15/23 I am a: Patient What is your living situation today?: I have a steady place to live Within the past 12 months, did the food you bought not last and you didn't have the money to get more?: Never true Within the past 12 months, did you worry whether your food would run out before you got money to buy more?: Never true Do you have trouble paying for medicines?: No Do you have trouble getting transportation to medical appointments?: No Do you have trouble paying your heating and electricity bill?: No Do you have trouble taking care of your child, family member or friend?: No Do you have trouble with day-to-day activities such as bathing, preparing meals, shopping, managing finances, etc.?: No Are you currently unemployed and looking for a job?: No Are you interested in more education?: No Please select the resources that you would like help with: None Currently or been in a relationship where the following occur: no concerns reported THRIVE Score: 0 AUDIT C Alcohol Use Questionnaire (AUDIT-C) 1. How often do you have a drink containing alcohol?: Monthly or less 2. How many drinks containing alcohol do you have on a typical day when you are drinking?: 1 or 2 3. How often do you have six or more drinks on one occasion?: Never Total Score: 1 JEAN CARLOS-7 AMB Questionnaire JEAN CARLOS-7 Date JEAN CARLOS - 7 assessed: 12/15/23 Feeling nervous, anxious, or on edge: 0 = Not at all Not being able to stop or control worryin = Not at all Worrying too much about different things: 0 = Not at all Trouble relaxin = Nearly every day Being so restless that it is hard to sit still: 2 = More than half the days Becoming easily annoyed or irritable: 2 = More than half the days Feeling afraid as if something awful might happen: 0 = Not at all Total JEAN CARLOS-7 score (0-4 normal; 5-9 mild; 10-14 moderate; 15-21 severe): 7 Source: Developed by Drs. Ronald Barajas, Nury Rubi, Cortes Giraldo and colleagues, with an educational stefano from [employer]. JEAN CARLOS-7 Assessment Billing JEAN CARLOS-7 Assessment Tool: JEAN CARLOS-7 Assessment 40430 Review of Systems Const Details: Denies chills, Denies fatigue, Denies fever(s), Denies headache(s) and Denies weakness HEENT Denies change in vision, Denies dizziness, Denies headache(s), Denies hearing loss, Denies nasal congestion, Denies sinus pain, Denies sinus pressure and Denies sore throat Card Denies chest pain, Denies lightheadedness, Denies dyspnea and Denies other (palpitations) Resp Denies cough, Denies dyspnea and Denies wheezing GI Denies abdominal pain, Denies melena, Denies hematochezia, Denies change in bowel habits, Denies dyspepsia and Denies nausea Denies hematuria and Denies dysuria Musc Denies abnormal gait, Denies myalgias, Denies arthralgias, Denies numbness and Denies tingling Skin/Breast Denies rash, Denies unusual bruising and Denies wounds Neuro Denies abnormal gait, Denies dizziness, Denies headache(s), Denies memory loss, Denies numbness, Denies Sensory deficit (Neuro), Denies tingling and Denies weakness Psych Denies anxiety, Denies depression and Denies memory loss Endo Denies cold intolerance, Denies fatigue, Denies heat intolerance, Denies polydipsia and Denies polyuria [place]/Lymph Denies easy bleeding and Denies easy bruising Aller/Immun Denies wheezing Physical exam (Primary Care) Vital Signs: Last Vital Signs Temp 97.7 F 12/15/23 11:01 Pulse 78 12/15/23 11:01 Resp 14 12/15/23 11:01 BP 116/72 12/15/23 11:01 Pulse Ox 99 12/15/23 11:01 Oxygen Delivery Method Room Air 12/15/23 11:01 BMI result Body Mass Index 35.3 Tobacco/Smoking Status: Tobacco use Status Tobacco use date assessed 12/15/23 12/15/23 11:16 Patient Tobacco Use Status Never used Tobacco 12/15/23 11:16 e-Cigarette/Vaping Use Never Used 12/15/23 11:16 PHQ-9: PHQ-9 Score PHQ-9: Total score 4 12/15/23 11:16 Depression Screening Interpretation: Negative Thrive Assessment: Date of Thrive Assessment Date Thrive assessed 12/15/23 12/15/23 11:16 Currently or been in a relationship where the following occur: no concerns reported Const Other: General: no acute distress, well developed, alert and awake Nutritional Appearance: well nourished Orientation/consciousness: patient oriented x3 HENMT Head: Yes normocephalic and Yes atraumatic Ears: hearing grossly normal bilaterally and TM's normal bilaterally General nose exam: Normal external nose present and Normal nares present Mouth: Normal oral and palatal mucosa present and moist mucous membranes Teeth and gingiva: dentition normal Throat: Yes oropharynx normal Eyes Pupils: Equal, round and reactive pupils present and Pupil accommodation reflex normal EOM: EOMs intact bilaterally Neck Neck: Yes normal visual inspection, Yes no lymphadenopathy and Yes trachea midline Thyroid: Thyroid normal Carotids: no bruits Lymphatic: no lymphadenopathy noted Chest Chest palpation & inspection: normal inspection of the chest Resp Effort & Inspection: normal respiratory effort Auscultation: clear to auscultation bilaterally Cardio Rate: regular rate Rhythm: regular rhythm Heart sounds: S1 normal heart sound present, S2 normal heart sound present, no gallops, no murmurs and no rubs Bruits: no abdominal aortic bruits and no carotid bruits GI Palpation (GI): No Abdominal aortic bruit present, Soft to palpation, nontender, No hepatosplenomegaly present and No Rebound tenderness present Auscultation: normal bowel sounds General: Yes no CVA tenderness Back/Spine/Pelvis Back: no CVA tenderness Cervical Spine: cervical ROM normal and No Cervical spine tenderness Thoracic/Lumbar Spine: thoraco-lumbar ROM normal, No pain with thoraco-lumbar ROM, No thoracic spinal tenderness and No lumbar spinal tenderness Skin General: warm and dry. Normal skin color. Normal skin turgor Lesions: no lesions Rashes: no rashes Trauma: no lacerations or abrasions Wounds: no wounds Nails: normal Neuro General: patient oriented x3, gait normal and CN's II-XI intact bilaterally Cranial nerves: Yes Equal, round and reactive pupils present Cognition (Neuro): normal cognition Gait exam (Neuro): Normal gait present Motor exam (neuro): 5/5 motor strength present throughout Sensory Exam: No Sensory deficit (Neuro) Deep tendon reflexes (DTR's): Right patellar reflex intensity grade: 2+ and Left patellar reflex intensity grade: 2+ Extrem General: Yes normal to inspection, No edema and No calf tenderness Psych Appearance: grossly normal Affect: normal affect Attitude: cooperative Thought process: Normal thought process present Assessment and Plan Assessment & Plan (1) Normal physical examination, routine: Code(s): Z00.00 - Encounter for general adult medical examination without abnormal findings Plan: No significant physical restrictions or limitations noted Healthy diet and routine exercise encouraged Advised to get lab work done and follow-up for telehealth visit in 2-3 weeks for labs review Return with symptoms or concerns Verbalized understanding and agreed with the treatment plan (2) Obesity (BMI 30-39.9): Code(s): E66.9 - Obesity, unspecified Plan: He currently weighs 253 lb, BMI is 35.3 His diet is generally unhealthy. He does not exercise Healthy diet and routine exercise encouraged Referred to [facility] dietitian (3) Uncircumcised male: Code(s): Z78.9 - Other specified health status Plan: History of irritation to the head of his penis which improves after showering. No acute symptoms at this time Referred to [facility] urology (4) Laboratory tests ordered as part of a complete physical exam (CPE): Code(s): Z00.00 - Encounter for general adult medical examination without abnormal findings Plan: Fasting labs ordered as part of a complete physical exam. Advised to fast for at least 10 hours before getting labs drawn. May drink water Verbalized understanding and agreed with treatment plan. Orders: Orders Complete Blood Count Auto Diff Today Z00.00 - Encounter for general adult medical examination without abnormal findings Comprehensive [place]. Panel Fast Today Z00.00 - Encounter for general adult medical examination without abnormal findings Lipid Panel Today Z00.00 - Encounter for general adult medical examination without abnormal findings TSH reflex Free T4 Today Z00.00 - Encounter for general adult medical examination without abnormal findings UA CC w/rflx Micro + Cult Today Z00.00 - Encounter for general adult medical examination without abnormal findings Referrals Nutrition/Dietitian Referral E66.9 - Obesity, unspecified Urology Referral Z78.9 - Other specified health status Medications: Discontinued cyclobenzaprine This medication may cause drowsiness so no driving for 8 hours after taking Discontinued Reason: Patient no longer taking 5 mg PO TID PRN 14 tabs 0RF muscle spasm prednisone Discontinued Reason: Patient no longer taking 60 mg (3 x 20 mg) PO DAILY 4 days 12 tabs 0RF acetaminophen Discontinued Reason: Patient no longer taking 1,000 mg (2 x 500 mg) PO Q6H PRN 30 tabs 0RF pain ibuprofen Discontinued Reason: Patient no longer taking 600 mg PO Q6H PRN 20 tabs 0RF pain oxycodone Narcotic, no driving for 6 hours after taking this medication Discontinued Reason: Patient no longer taking 5 mg PO Q6H PRN 10 tabs 0RF pain ibuprofen Discontinued Reason: Patient no longer taking 600 mg PO Q6H PRN 20 tabs 0RF pain lidocaine 5% leave on most painful area for up to 12 hrs Discontinued Reason: Patient no longer taking 1 patch topical DAILY PRN 15 ea 0RF pain acetaminophen (Tylenol) Discontinued Reason: Patient no longer taking 325 mg PO Q4H PRN 30 caps 0RF pain cyclobenzaprine Discontinued Reason: Patient no longer taking 10 mg PO BEDTIME PRN 7 tabs 0RF muscle spasm Coding Level of Care Code New Pt Prev Care 18-39yr(61761 Diagnoses Normal physical examination, routine Z00.00 Obesity (BMI 30-39.9) E66.9 Uncircumcised male Z78.9 Laboratory tests ordered as part of a complete physical exam (CPE) Z00.00 Additional Codes JEAN CARLOS-7 Assessment Billing - JEAN CARLOS-7 Assessment Tool: JEAN CARLOS-7 Assessment 10718 ([id number])
== END 2023-12-15 11:39 | disposition home or self-care (01) ==
PROVIDERS: Visit Provider Nurse Practitioner Family
DX: Z00.00 Encounter for general adult medical examination without abnormal findings (principal); E66.9 Obesity, unspecified; Z78.9 Other specified health status; Z68.35 Body mass index [BMI] 35.0-35.9, adult
CPT/HCPCS: 99385

== ENCOUNTER 2023-12-16 09:44 | Outpatient (REF) | payer OTHER, SELFPAY ==
[2023-12-16 09:51] LABS: MANUAL DIFF FLAG NO
[2023-12-16 10:19] LABS: Basophils Absolute Auto 0.1 X10*3/uL (0.0-0.2); Basophils Percent Auto 0.9 % (0-2); Eosinophils Absolute Auto 0.1 X10*3/uL (0.0-0.4); Eosinophils Percent Auto 1.5 % (0-4); Hematocrit 44.7 % (42.0-52.0); Imm Gran Abs Auto 0.02 X10*3/uL (0.00-0.03); Imm Gran Pct Auto 0.3 % (0.0-0.4); Lymphocytes Percent Auto 29.6 % (20-40); Mean Corpuscular HGB Conc 35.8 g/dl (31.0-36.0); Mean Corpuscular Hemoglobin 29.4 pg (27.0-33.0); Mean Platelet Volume 10.2 fL (9.4-12.4); Monocytes Absolute Auto 0.6 X10*3/uL (0.1-1.2); Monocytes Percent Auto 8.4 % (2-11); Neutrophils Absolute Auto 3.9 x10*3/uL (2.0-8.3); Neutrophils Percent Auto 59.3 % (45-73); Platelet Count 269 X10*3/uL (160-400); Red Blood Count 5.45 X10*6/uL (4.60-5.80); Red Cell Distribution Width 12.2 % (11.0-16.0); White Blood Count 6.7 X10*3/uL (4.8-10.8)
[2023-12-16 10:37] LABS: Appearance Urine Clear; Color Urine Yellow; Glucose Urine UA Negative (Negative); Leukocyte Esterase Urine Negative (Negative); Nitrite Urine Negative (Negative); PH 6.5 (5.0-9.0); Urine Blood Negative (Negative); Urine Ketones Negative (Negative); Urine Protein Negative (Neg-Trace)
[2023-12-16 10:50] LABS: Alanine Aminotransferase 53 U/L (0-40); Albumin Level 4.7 g/dL (3.5-5.0); Alkaline Phosphatase 59 U/L (39-117); Anion Gap 11 (12-20); Aspartate Amino Transferase 28 U/L (5-37); Bilirubin Total 0.7 mg/dL (0.0-1.0); Blood Urea Nitrogen 10 mg/dL (9-16); Calcium 9.6 mg/dL (8.4-10.2); Carbon Dioxide 25 mmol/L (22-29); Chloride 108 mmol/L (96-108); Cholesterol 141 mg/dL (<200); Estimated Glomerular Filt Rate > 60; Glucose Fasting 86 mg/dL (60-99); HDL Cholesterol 34 mg/dL (>40); LDL Cholesterol Calculated 82 mg/dL (<100); Sodium 140 mmol/L (135-145); Total Protein 7.9 g/dL (6.5-8.0); Triglycerides 126 mg/dL (<150)
[2023-12-16 11:09] LABS: TSH reflex Free T4 1.48 uIU/mL (0.32-4.0)
== END 2023-12-16 09:45 | disposition home or self-care (01) ==
LOC: HO.LAB 09:44
PROVIDERS: PCP Nurse Practitioner Family; Visit Provider Nurse Practitioner Family
DX: Z00.00 Encounter for general adult medical examination without abnormal findings (principal); Z13.89 Encounter for screening for other disorder
CPT/HCPCS: 36415; 80053; 80061; 81003; 84443; 85025

== ENCOUNTER 2024-01-04 10:17 | Outpatient (AMB) | payer OTHER, SELFPAY ==
[2024-01-04 10:18] VITALS: BMI 35.4
--- NOTE | 2024-01-04 10:18 | A.OFFVIS_ITS ---
VS Expanded 01/04/24 10:18 01/04/24 10:24 Height 5 ft 11 in 5 ft 11 in Weight 253 lb 8.505 oz 253 lb BMI 35.4 35.3 Intake Visit Reasons: OBESITY/LVM Allergies Seasonal Allergies Allergy (Intermediate, Verified 12/15/23 11:20) Sneezing amoxicillin [AMOXICILLIN] Allergy (Mild, Verified 12/15/23 11:20) HIVES Penicillins [PENICILLINS] Allergy (Mild, Verified 12/15/23 11:20) HIVES penicillin V Allergy (Unknown, Verified 12/15/23 11:20) Swelling Nutrition Presentation Details: Pt presents for MNT for obesity. Pt was referred by Anita Gonzalez, PCP food frequency fruit:4+ vex/wk dairy: 3+ fish: not including starches > 25 serving/s beverages: restarted choosing low sugar beverage, 64 oz/d Physical activity: sedentary BS Monitoring Most Recent Diabetes Results: Cholesterol 141 mg/dL (<200) 12/16/23 HDL Cholesterol 34 mg/dL (>40) L 12/16/23 Triglycerides 126 mg/dL (<150) 12/16/23 Creatinine 0.80 mg/dL (0.5-1.4) 12/16/23 Blood Urea Nitrogen 10 mg/dL (9-16) 12/16/23 Sodium 140 mmol/L (135-145) 12/16/23 Potassium 4.0 mmol/L (3.3-5.1) 12/16/23 Chloride 108 mmol/L (96-108) 12/16/23 Carbon Dioxide 25 mmol/L (22-29) 12/16/23 Calcium 9.6 mg/dL (8.4-10.2) 12/16/23 AST 28 U/L (5-37) 12/16/23 ALT 53 U/L (0-40) H 12/16/23 Total Protein 7.9 g/dL (6.5-8.0) 12/16/23 Albumin 4.7 g/dL (3.5-5.0) 12/16/23 TLI-Mhgenyl-Qs.Jeor Equation Height: 5 ft 11 in Weight: 253 lb Resting Metabolic Rate: 2140.81 Calculated Activity Level: Sedentary Calories Needed to Maintain Weight: 2568.97 Diagnosis Nutrition problem #1: excessive energy intake As related to (etiology) #1: diagnosis As evidenced by (sign/symptom) #1: knowledge deficit of diet Monitoring/Goals Nutrition problem monitoring: level of knowledge/skill and weight Learning/Education Readiness to learn: good [facility] Medical History (Updated 12/15/23 @ 11:45 by Racquel Rojas CNP) No pertinent past medical history Surgical History History of appendectomy Family History Other Substance abuse Social History Housing: House Alcohol intake: never Patient Tobacco Use Status: Never used Tobacco e-Cigarette/Vaping Use: Never Used service: No Current occupational status: employed Current occupation: [employer] / Systems [employer] Cognitive needs: No Hearing needs: No Vision needs: Yes Assessment & Plan Assessment & Plan (1) Obesity (BMI 30-39.9): Code(s): E66.9 - Obesity, unspecified Category: Medical Plan: Wt: 115 Kg ( 12/2023 ) Est kcal needs as per MSJ: 2600 (40% carb, 30% protein/fat) Est fluid needs as per 25-30 ml/d: 3450 Est prot per day as per 1 g/kg bw: 115 Recommend fiber intake : 8-10 g per day and gradually increase to 25-28 g per day for women and 35-38 g for men or as tolerated Recommend sodium intake per day : less than 2000 mg Educated patient on: ( R = reviewed V = verbalizes understanding N/R = needs review N/A = not applicable * Food sources of carbohydrate, adequate serving sizes and its role in various health conditions: R V N/R * Differences between complex carbohydrates a simple carbohydrates, role of fiber in diet: R V N/R * Lean protein sources of foods: R V NR * Differences between types of fats and role in diet (mono on saturated fat fatty acids, saturated fatty acids, trans fats): R V N/R * Food sources of sodium in salt and healthy modifications for heart health in kidney health: R V R/V * Vitamins and minerals: R V N/R * Healthy plate method concept: R * mindful eating : R * Physical activity: Benefits a precaution: R V N/R * Hypoglycemia protocol (rule of 15): R V N/R * Dietary prevention of Hyperglycemia: R V R/V Patient Instructions: Follow healthy plate method in most meals Drink water, reducing sugary beverages with meals and snacks Have fish at least twice a week Coding Level of Care Code Nutr Indiv Intake (11204) Diagnoses Obesity (BMI 30-39.9) E66.9 Time Spent (min) 25
[2024-01-04 10:24] VITALS: BMI 35.3
== END 2024-01-04 10:43 | disposition home or self-care (01) ==
PROVIDERS: PCP Nurse Practitioner Family; Visit Provider Dietitian, Registered
DX: E66.9 Obesity, unspecified (principal)

== ENCOUNTER → 2024-01-04 10:17 | Outpatient (BNVA) | payer OTHER, SELFPAY | PROVIDERS: PCP Nurse Practitioner Family; Visit Provider Dietitian, Registered | DX: E66.9 Obesity, unspecified (principal); Z68.35 Body mass index [BMI] 35.0-35.9, adult; Z71.3 Dietary counseling and surveillance | CPT/HCPCS: 97802 ==

== ENCOUNTER 2024-01-04 14:50 | Outpatient (AMB) | payer OTHER, SELFPAY ==
--- NOTE | 2024-01-04 14:31 | A.OFFPC_ITS ---
Intake Visit Reasons: Telehealth 2-3 wks labs review Intake Note: patient here for telehealth follow up on labs. 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 Allergies Seasonal Allergies Allergy (Intermediate, Verified 01/04/24 14:47) Sneezing amoxicillin [AMOXICILLIN] Allergy (Mild, Verified 01/04/24 14:47) HIVES Penicillins [PENICILLINS] Allergy (Mild, Verified 01/04/24 14:47) HIVES penicillin V Allergy (Unknown, Verified 01/04/24 14:47) Swelling Tobacco use date assessed: 12/15/23 Dental Screening Dental Screen Date: 12/15/23 HPI HPI Comments History of Present Illness Details 28-year-old male [facility] for review of recent l ab work He offers no complaints and denies acute symptoms at this time [facility] Medical History (Updated 01/04/24 @ 14:32 by Racquel Rojas CNP) No pertinent past medical history Surgical History History of appendectomy Family History Other Substance abuse Social History Housing: House Alcohol intake: never Patient Tobacco Use Status: Never used Tobacco e-Cigarette/Vaping Use: Never Used service: No Current occupational status: employed 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 Ronald Barajas, Nury Rubi, Cortes Giraldo and colleagues, with an educational stefano from [employer]. Review of Systems Const Details: Const Denies chills, Denies fatigue, Denies fever(s), Denies headache(s) and Denies weakness ENT Denies dizziness and Denies headache(s) Card Denies chest pain, Denies lightheadedness, Denies dyspnea and Denies other (Palpitations) Resp Denies cough, Denies dyspnea, Denies wheezing and Denies other ( shortness of breath) GI Denies abdominal pain, Denies melena, Denies hematochezia, Denies change in bowel habits, Denies dyspepsia and Denies nausea Denies hematuria and Denies dysuria Musc Denies abnormal gait, Denies myalgias, Denies arthralgias, Denies numbness and Denies tingling Skin/Breast Denies rash, Denies unusual bruising and Denies wounds Neuro Denies abnormal gait, Denies dizziness, Denies headache(s), Denies memory loss, Denies numbness, Denies Sensory deficit (Neuro), Denies tingling and Denies weakness Psych Denies anxiety, Denies depression, Denies memory loss Endo Denies cold intolerance, Denies fatigue, Denies heat intolerance, Denies polydipsia and Denies polyuria Aller/Immun Denies wheezing Physical exam (Primary Care) Tobacco/Smoking Status: Tobacco use Status Tobacco use date assessed 12/15/23 01/04/24 14:33 Patient Tobacco Use Status Never used Tobacco 01/04/24 14:33 e-Cigarette/Vaping Use Never Used 01/04/24 14:33 Thrive Assessment: Date of Thrive Assessment Date Thrive assessed 12/15/23 01/04/24 14:33 Const Other: Telemedicine visit. No physical exam Telehealth Telehealth Telehealth Platform: Telephone Location of provider rendering services: practice address Location of patient: address on file Patient Identification confirmed using: Name, : Yes Telehealth method: voice only Patient verbally consented to treatment: Yes Patient informed of any privacy concerns related to visit: Yes Assessment and Plan Assessment & Plan (1) Elevated ALT measurement: Code(s): R74.01 - Elevation of levels of liver transaminase levels Plan: Recent ALT slightly elevated, 53 He has history of slightly elevated ALT level AST and alk-phos levels are normal Likely hepatic steatosis Healthy diet and routine exercise encouraged Advised to schedule his next physical exam of on/after 12/14/2024 Return sooner with symptoms or concerns Verbalized understanding and agreed with the treatment plan (2) Low HDL (under 40): Code(s): E78.6 - Lipoprotein deficiency Plan: Recent HDL level is low, 34 Advised to limit foods high in saturated fat and avoid foods high in trans fat Routine exercise encouraged Will continue to monitor Verbalized understanding and agreed with the treatment plan Coding Level of Care Code Tele Est Pt Level 3 (19188) Diagnoses Elevated ALT measurement R74.01 Low HDL (under 40) E78.6 Time Spent (min) 10
== END 2024-01-04 15:22 | disposition home or self-care (01) ==
LOC: HO.HMGFM 14:50
PROVIDERS: PCP Nurse Practitioner Family; Visit Provider Nurse Practitioner Family
DX: R74.01 Elevation of levels of liver transaminase levels (principal); E78.6 Lipoprotein deficiency
CPT/HCPCS: 99441

== ENCOUNTER 2024-02-08 10:03 | Outpatient (AMB) | payer OTHER, SELFPAY ==
[2024-02-08 10:07] VITALS: BMI 35.0
--- NOTE | 2024-02-08 10:07 | A.OFFVIS_ITS ---
VS Expanded 02/08/24 10:07 Height 5 ft 11 in Weight 251 lb 5.231 oz BMI 35.0 Intake Visit Reasons: Obesity/LVM Allergies Seasonal Allergies Allergy (Intermediate, Verified 01/04/24 14:47) Sneezing amoxicillin [AMOXICILLIN] Allergy (Mild, Verified 01/04/24 14:47) HIVES Penicillins [PENICILLINS] Allergy (Mild, Verified 01/04/24 14:47) HIVES penicillin V Allergy (Unknown, Verified 01/04/24 14:47) Swelling Nutrition Presentation Details: Pt presents for MNT f/u for fatty liver Pt reports on mindful eating, working on having more homemade meals BS Monitoring Most Recent Diabetes Results: Cholesterol 141 mg/dL (<200) 12/16/23 HDL Cholesterol 34 mg/dL (>40) L 12/16/23 Triglycerides 126 mg/dL (<150) 12/16/23 Creatinine 0.80 mg/dL (0.5-1.4) 12/16/23 Blood Urea Nitrogen 10 mg/dL (9-16) 12/16/23 Sodium 140 mmol/L (135-145) 12/16/23 Potassium 4.0 mmol/L (3.3-5.1) 12/16/23 Chloride 108 mmol/L (96-108) 12/16/23 Carbon Dioxide 25 mmol/L (22-29) 12/16/23 Calcium 9.6 mg/dL (8.4-10.2) 12/16/23 AST 28 U/L (5-37) 12/16/23 ALT 53 U/L (0-40) H 12/16/23 Total Protein 7.9 g/dL (6.5-8.0) 12/16/23 Albumin 4.7 g/dL (3.5-5.0) 12/16/23 [facility] Medical History (Updated 01/04/24 @ 14:32 by Racquel Rojas CNP) No pertinent past medical history Surgical History History of appendectomy Family History Other Substance abuse Social History Housing: House Alcohol intake: never Patient Tobacco Use Status: Never used Tobacco e-Cigarette/Vaping Use: Never Used service: No Current occupational status: employed 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 [employer] Cognitive needs: No Hearing needs: No Vision needs: Yes Assessment & Plan Assessment & Plan (1) Obesity (BMI 30-39.9): Code(s): E66.9 - Obesity, unspecified Category: Medical Plan: Wt: 115 Kg ( 12/2023 ), 114kg 01/2024) Est kcal needs as per MSJ: 2600 (40% carb, 30% protein/fat) Est fluid needs as per 25-30 ml/d: 3450 Est prot per day as per 1 g/kg bw: 115 Recommend fiber intake : 8-10 g per day and gradually increase to 25-28 g per day for women and 35-38 g for men or as tolerated Recommend sodium intake per day : less than 2000 mg Educated patient on: ( R = reviewed V = verbalizes understanding N/R = needs review N/A = not applicable * Food sources of carbohydrate, adequate serving sizes and its role in various health conditions: R V N/R * Differences between complex carbohydrates a simple carbohydrates, role of fi abbi in diet: R * Lean protein sources of foods: R V NR * Differences between types of fats and role in diet (mono on saturated fat fatty acids, saturated fatty acids, trans fats): R V N/R * Food sources of sodium in salt and healthy modifications for heart health in kidney health: R V R/V * Vitamins and minerals: R V N/R * Healthy plate method concept: R * mindful eating : R * Physical activity: Benefits a precaution: R V * Patient Instructions: Include fiber rich foods (whole grain, seeds, non starchy vegetables) gradually increasing by 3 g/day , Increase water/fluid intake as your fiber intake increases Continue working on reducing on saturated fats (and highly processed foods Coding Level of Care Code Nutr Indiv Subseq (12700) Diagnoses Obesity (BMI 30-39.9) E66.9 Time Spent (min) 30
== END 2024-02-08 10:35 | disposition home or self-care (01) ==
PROVIDERS: PCP Nurse Practitioner Family; Visit Provider Dietitian, Registered
DX: E66.9 Obesity, unspecified (principal)

== ENCOUNTER → 2024-02-08 10:03 | Outpatient (BNVA) | payer OTHER, SELFPAY | PROVIDERS: PCP Nurse Practitioner Family; Visit Provider Dietitian, Registered | DX: E66.9 Obesity, unspecified (principal); Z68.35 Body mass index [BMI] 35.0-35.9, adult; Z71.3 Dietary counseling and surveillance | CPT/HCPCS: 97803 ==

== ENCOUNTER 2024-02-16 10:05 | Outpatient (AMB) | payer OTHER, SELFPAY ==
--- NOTE | 2024-02-16 10:03 | MHC.OFFVIS ---
Intake Visit Reasons: circumcision consult Intake Note: New Patient presents for initial visit for circumcision consult Urology Medications: none Blood Thinner: none Driver/Merchandiser Required: No Accompanied by: Self / Same As Patient Allergies Seasonal Allergies Allergy (Intermediate, Verified 02/16/24 10:36) Sneezing amoxicillin [AMOXICILLIN] Allergy (Mild, Verified 02/16/24 10:36) HIVES Penicillins [PENICILLINS] Allergy (Mild, Verified 02/16/24 10:36) HIVES penicillin V Allergy (Unknown, Verified 02/16/24 10:36) Swelling Medication List - Last Reconciled 02/16/24 by ROSALINA Sneed clotrimazole-betamethasone 1-0.05 % 1 appl topical BID 4 weeks HPI Comments Details: Britton is a very pleasant 28-year-old male patient of Dr. Rojas. He presents to the office today as a new patient for consultation of a circumcision. In discussion with the patient today he reports noting over the last few years to be having issues with recurrent balanitis and has tried multiple creams, ointments, and or sprays that have been prescribed and continues with recurrent balanitis and would like to have a circumcision. He otherwise denies any bothersome urinary issues. He denies urinary urgency, urinary frequency, incontinence, nocturia, hematuria, dysuria, foul smelling urine, changes to urinary stream, flank pain, fever, and or chills. He is happy with his current voiding parameters. In office urinalysis results reviewed with the patient today. In assessment of the patient today foreskin is retractable and penile glandis mildly irritated otherwise no open areas, lesions, and or drainage noted. Discussed risks and benefits of circumcision. All questions were answered. He otherwise denies any other issues or concerns at this time. 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 Cognitive needs: No Hearing needs: No Vision needs: Yes Review of Systems Const All systems reviewed & are unremarkable except as noted in HPI and below Physical Exam Const General: cooperative, healthy appearing, comfortable, no acute distress, well developed, alert and awake Orientation/consciousness: patient oriented x3 Limitations: no limitations HEENT Head: Yes normal to inspection, Yes normocephalic and Yes atraumatic Ears: hearing grossly normal bilaterally Eyes General: appearance normal, both eyes and all related structures Neck Neck: Yes normal visual inspection and Yes trachea midline Chest Chest palpation & inspection: normal inspection of the chest Resp Effort & Inspection: normal respiratory effort and able to speak in complete sentences Cardio Rate: regular rate GI Inspection: Yes normal to inspection General: Yes no CVA tenderness Back/Spine/Pelvis Back: no CVA tenderness Skin General skin exam: no rashes or lesions noted Neuro General: patient oriented x3 Extrem General: Yes normal to inspection Psych Appearance: grossly normal and well kempt Mental Status: mental status grossly normal Speech and movement: Normal speech and movement present and Clear speech present Affect: normal affect Attitude: cooperative Thought process: Normal thought process present Thought content: Normal thought content present Insight: Fair insight present (Psych) Judgement: Fair judgement present (Psych) Results AMB Urinalysis, Automated UA Leukoctes 0 Jose Manuel/uL Last Edit by Minicabster on 02/16/24 10:19 UA Nitrite Last Edit by Minicabster on 02/16/24 10:19 UA Urobilinogen 0.2 mg/dL Last Edit by Minicabster on 02/16/24 10:19 UA Protein 0 mg/dL Last Edit by Minicabster on 02/16/24 10:19 UA pH 6.0 Last Edit by Minicabster on 02/16/24 10:19 UA Blood 0 Arun/uL Last Edit by Minicabster on 02/16/24 10:19 UA Specific [place] 1.015 Last Edit by Minicabster on 02/16/24 10:19 UA Ketone Last Edit by Minicabster on 02/16/24 10:19 UA Bilirubin 0 mg/dL Last Edit by Orestes Tamayo on 02/16/24 10:19 UA Glucose 0 mg/dL Last Edit by Orestes Tamayo on 02/16/24 10:19 Results Reviewed Results Reviewed: Laboratory Last Values Urine pH (Auto) 6.0 02/16/24 10:12 Specific [place] (Auto) 1.015 02/16/24 10:12 Urine Protein (Auto) 0 mg/dL 02/16/24 10:12 Glucose (UA)(Auto) 0 mg/dL 02/16/24 10:12 Urine Blood (Auto) 0 Arun/uL 02/16/24 10:12 Urine Bilirubin (Auto) 0 mg/dL 02/16/24 10:12 Urine Urobilinogen (Auto) 0.2 mg/dL 02/16/24 10:12 Leukocyte Esterase (Auto) 0 Jose Manuel/uL 02/16/24 10:12 Assessment & Plan Assessment & Plan (1) H/O balanitis: Code(s): Z87.438 - Personal history of other diseases of male genital organs Category: Medical (2) Uncircumcised male: Code(s): Z78.9 - Other specified health status Category: Medical Plan: Risks, benefits and alternatives to therapy were discussed. These include but are not limited to infection, bleeding, damage to local organs and tissues, need for further interventions. ? Anesthetic risks regarding cardiac arrhythmia, blood clots, and potential mortality were discussed. The patient understands the typical recovery time and the outpatient nature of the procedure. After consideration of these risks the patient gives full informed consent and they wish to move ahead with the procedure. Plan In office urinalysis results reviewed with the patient today. Discussed proper care. Discussed risks and benefits of circumcision All questions were answered. Patient denies any bothersome urinary issues. He is happy with current voiding parameters Prescription provided for clotrimazole-betamethasone 1-0.05 % Will schedule for circumcision as discussed Follow-up per doctor's orders; or sooner with any issues, concerns, and or questions. Orders: Orders AMB Urinalysis Automated Today Z13.9 - Encounter for screening, unspecified Medications: New clotrimazole-betamethasone 1-0.05 % Apply thin coat 2 times per day 1 appl topical BID 4 weeks 45 grams 0RF N48.1 - Balanitis Patient Instructions: The patient had an opportunity to ask questions regarding the treatment plan. All questions were answered. Physical exam, labs, and imaging were discussed and reviewed in detail. As well as risks, benefits, and discussion of treatment choices. No major barriers to understanding were identified. The patient expressed understanding and agreement with the above treatment plan. The patient was made aware they should contact our office by phone for worsening of their current condition, the appearance of new symptoms, or with any questions or concerns. Compliance is encouraged with any medications and follow up testing that is ordered. It is a privilege to be allowed the opportunity to participate in? your urological care.? Again, if you have any questions or concerns If you have any questions or concerns please do not hesitate to contact me. The office is [phone]. This note is constructed using voice recognition software. While every effort has been made to ensure accuracy fuel system maintenance worker errors may have been included. Yours sincerely, ROSALINA Sneed Coding Level of Care Code New Pt Level 4 (55618) Diagnoses H/O balanitis Z87.438 Uncircumcised male Z78.9
== END 2024-02-16 10:36 | disposition home or self-care (01) ==
PROVIDERS: PCP Nurse Practitioner Family; Visit Provider Nurse Practitioner Family
DX: Z87.438 Personal history of other diseases of male genital organs (principal); Z78.9 Other specified health status; Z13.9 Encounter for screening, unspecified
CPT/HCPCS: 99204

== ENCOUNTER → 2024-02-16 10:05 | Outpatient (BNVA) | payer OTHER, SELFPAY | PROVIDERS: PCP Nurse Practitioner Family; Visit Provider Nurse Practitioner Family | DX: N48.1 Balanitis (principal) | CPT/HCPCS: 81003 ==

== ENCOUNTER 2024-03-01 10:09 | Day surgery (SDC) | payer OTHER, SELFPAY ==
--- NOTE | 2024-02-29 09:34 | P.CONAN_ITS ---
Documented by User: Carolynn Mitchell NP 02/29/24 09:34 HPI - Anesthesia Eval Consult details Narrative: 28yo M for Circumcision PMFSH Active Problems Active Problems: All Active Problems H/O balanitis (Acute) Low HDL (under 40) (Acute) Elevated ALT measurement (Acute) Uncircumcised male (Acute) Obesity (BMI 30-39.9) (Acute) Normal physical examination, routine (Acute) Laboratory tests ordered as part of a complete physical exam (CPE) (Acute) Past Medical History Medical History No pertinent past medical history Family History Family History Other Substance abuse Surgical History Surgical History History of appendectomy Social History Social History Housing: House Alcohol intake: never Patient Tobacco Use Status: Never used Tobacco e-Cigarette/Vaping Use: Never Used Use of substances other than those prescribed or required for medical reasons: No Advance Directives: No Advance Directives Information Provided: Yes Recently lost weight without trying: No Nutrition Risks: No Nutritional Risk Poor oral hygiene: No service: No Current occupational status: employed 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 Cognitive needs: No Hearing needs: No Vision needs: Yes Meds Allergies Allergy/AdvReac Type Severity Reaction Status Date / Time Seasonal Allergies Allergy Intermediate Sneezing Verified 03/01/24 13:02 amoxicillin [AMOXICILLIN] Allergy Mild HIVES Verified 03/01/24 13:02 Penicillins [PENICILLINS] Allergy Mild HIVES Verified 03/01/24 13:02 penicillin V Allergy Unknown Swelling Verified 03/01/24 13:02 Exam Pertinent Lab Results Pertinent Lab Results: Laboratory Tests 12/16/23 09:50 WBC 6.7 Hgb 16.0 Hct 44.7 Plt Count 269 Sodium 140 Potassium 4.0 Chloride 108 Carbon Dioxide 25 BUN 10 Creatinine 0.80 Assessment and Plan Assessment Anesthesia Assessment: Chart Reviewed Documented by User: Golden Faith MD 03/01/24 16:00 PMF Past Medical History Medical History No pertinent past medical history Family History Family History Other Substance abuse Family history of problems with anesthesia: No Surgical History Surgical History History of appendectomy History of Problems with Anesthesia: No Social History Social History Housing: House Alcohol intake: never Patient Tobacco Use Status: Never used Tobacco e-Cigarette/Vaping Use: Never Used Use of substances other than those prescribed or required for medical reasons: No Advance Directives: No Advance Directives Information Provided: Yes Recently lost weight without trying: No Nutrition Risks: No Nutritional Risk Poor oral hygiene: No service: No Current occupational status: employed 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 Cognitive needs: No Hearing needs: No Vision needs: Yes Meds Allergies Allergy/AdvReac Type Severity Reaction Status Date / Time Seasonal Allergies Allergy Intermediate Sneezing Verified 03/01/24 13:02 amoxicillin [AMOXICILLIN] Allergy Mild HIVES Verified 03/01/24 13:02 Penicillins [PENICILLINS] Allergy Mild HIVES Verified 03/01/24 13:02 penicillin V Allergy Unknown Swelling Verified 03/01/24 13:02 Exam Airway Mallampati Class: I TM Dist: <=3cm Neck ROM: Full Loose/Missing/Broken Teeth: No Heart: ok Lungs: ok Assessment and Plan Assessment Anesthesia Assessment: Anesthesia Plan Discussed Final Anesthetic Review Family History of Problems with Anesthesia: No History of Problems with Anesthesia: No NPO: Yes ASA Class: II Final Preanesthetic Review: No Changes in Pt Med Stat, Meds/Allgs Chart Reviewed, Consent Obtained/Reviewed and Anes Risks/Benef Reviewed Patient Risk: Intermediate Procedure Risk: Low Anesthetic Plan Anesthetic Plan: GA and Agree w/ Assess. and Plan Disposition: Standard PACU
[2024-03-01 13:01] VITALS: BMI 34.0
[2024-03-01 13:08] VITALS: BP 136/81; PULSE 77; RESP 16; TEMP 36.7; O2SAT 97
[2024-03-01] MEDS: Lactated Ringers 1,000 ML 100 ML IVCONT (13:32)
--- NOTE | 2024-03-01 15:22 | MHC.SHP ---
Pre-Procedural Eval Section A - 24 Hr Update-Section A only Date of Service: 03/01/24 The patient is an INPATIENT: No The patient has been examined within 24 hours of the surgical procedure. The History & Physical has been completed within 30 days and I have reviewed it.: Yes Section B - Complete if H&P > 30 days Chief Complaint: Balanitis Allergies: Allergies Allergy/AdvReac Type Severity Reaction Status Date / Time Seasonal Allergies Allergy Intermediate Sneezing Verified 03/01/24 13:02 amoxicillin [AMOXICILLIN] Allergy Mild HIVES Verified 03/01/24 13:02 Penicillins [PENICILLINS] Allergy Mild HIVES Verified 03/01/24 13:02 penicillin V Allergy Unknown Swelling Verified 03/01/24 13:02 Plan Diagnosis/Plan: Unchanged I have reviewed the history and physical and performed a pertinent physical examination on my patient. No changes have occurred unless specified. Circumcision. Discussed risks including but not limited of infection, bleeding. Time Spent With Patient Time: Total time managing care of this patient today ____ minutes.
[2024-03-01 17:30] VITALS: BP 132/86; PULSE 85; RESP 16; TEMP 36.9; O2SAT 97
[2024-03-01 17:35] VITALS: BP 151/88; PULSE 78; RESP 16; O2SAT 98
[2024-03-01 17:40] VITALS: BP 143/81; PULSE 78; RESP 16; O2SAT 98
--- NOTE | 2024-03-01 17:40 | W.PM.OPN ---
Operative Note Operative Note Date of Service: 03/01/24 Narrative: PreOperative Diagnosis:? ? Balanitis, phimosis Post Operative Diagnosis:?Balanitis, phimosis Procedure:?Circumcision Surgeon:?Dr Estrella Lawrence Anesthesia:? General Procedure: After informed consent was verified the patient was brought to the operating room and placed in a supine position.? Anesthesia was performed per protocol. The patient was prepped and draped in the usual sterile fashion. Safety pause time-out was performed. Antibiotics confirmed. Penile block was performed. With the foreskin over the glans a circumferential incision is made at the level of the rizzo. The fore skin was then retracted and a circumferential incision was made 0.5 cm below the rizzo. The foreskin is removed with cautery. The skin is closed in 4 quadrants with 3-0 chromic, each quadrant closed with interrupted 4-0 chromic, bacitracin ointment was used over the incision and incision covered with cling. The patient tolerated the procedure well and was transferred to the recovery area upon completion. Complications: None
[2024-03-01 17:45] VITALS: BP 145/89; PULSE 78; RESP 16; O2SAT 98
[2024-03-01 18:00] VITALS: BP 143/88; PULSE 79; RESP 16; TEMP 36.3; O2SAT 98
== END 2024-03-01 18:07 | disposition home or self-care (01) ==
PROVIDERS: PCP Nurse Practitioner Family; Visit Provider Urology
PROC: (CPT 54161; principal; 2024-03-01 12:10)
DX: N48.1 Balanitis (principal); N47.1 Phimosis; J30.2 Other seasonal allergic rhinitis; Z88.0 Allergy status to penicillin; Z88.1 Allergy status to other antibiotic agents
CPT/HCPCS: 54161; 88304; J0690; J2704; J2795; J3010

== ENCOUNTER → 2024-03-01 10:09 | Outpatient (BNV) | payer OTHER, SELFPAY | PROVIDERS: PCP Nurse Practitioner Family; Visit Provider Urology | DX: N48.1 Balanitis (principal) | CPT/HCPCS: 54161 ==

== ENCOUNTER → 2024-03-09 09:01 | Outpatient (BNVA) | payer OTHER, SELFPAY | PROVIDERS: PCP Nurse Practitioner Family; Visit Provider Urology ==

== ENCOUNTER 2024-03-14 10:16 | Outpatient (AMB) | payer OTHER, SELFPAY ==
--- NOTE | 2024-03-14 10:18 | MHC.OFFVIS ---
Intake Visit Reasons: Circumcision- follow up Intake Note: Patient is present for CIRCUMCISION F/U Urology Medication:OXYCODONE Antibiotic Allergy:AMOXICILLIN, PENICILLINS Blood Thinner:NONE Siding Installer Required: No Allergies Seasonal Allergies Allergy (Intermediate, Verified 03/14/24 10:19) Sneezing amoxicillin [AMOXICILLIN] Allergy (Mild, Verified 03/14/24 10:19) HIVES Penicillins [PENICILLINS] Allergy (Mild, Verified 03/14/24 10:19) HIVES penicillin V Allergy (Unknown, Verified 03/14/24 10:19) Swelling HPI Comments Details: 03/14/24--Hever is here for follow-up he is status post circumcision 3 weeks ago. He denies pain. He states he noted a little bit of redness in the area. On examination there is some mild irritation along the dorsal aspect of the incision the ventral aspect is healing well. I have discussed with him trying to keep the area dry we will give him some gauze. He was also putting soap directly on the incision which I have instructied him not to do. 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 Cognitive needs: No Hearing needs: No Vision needs: Yes Review of Systems Const All systems reviewed & are unremarkable except as noted in HPI and below Reports no additional complaints Eyes Reports no additional complaints ENT Reports no additional complaints Card Reports no additional complaints Resp Reports no additional complaints GI Reports no additional complaints Reports as per HPI Musc Reports no additional complaints Skin/Breast Reports system reviewed and no additional complaints, except as documented Neuro Reports no additional complaints Psych Reports no additional complaints Endo Reports no additional complaints [place]/Lymph Reports no additional complaints Aller/Immun Reports no additional complaints Results AMB Urinalysis, Automated UA Leukoctes 0 Jose Manuel/uL Last Edit by Roula Lopez [facility] on 03/14/24 10:36 UA Nitrite Negative Last Edit by Roula Lopez [facility] on 03/14/24 10:36 UA Urobilinogen 0.2 mg/dL Last Edit by Roula Lopez [facility] on 03/14/24 10:36 UA Protein 0 mg/dL Last Edit by Roula Lopez [facility] on 03/14/24 10:36 UA pH 5.5 Last Edit by Roula Lopez [facility] on 03/14/24 10:36 UA Blood 0 Arun/uL Last Edit by Roula Lopez [facility] on 03/14/24 10:36 UA Specific [place] 1.030 Last Edit by Roula Lopez [facility] on 03/14/24 10:36 UA Ketone Negative Last Edit by Roula Lopez [facility] on 03/14/24 10:36 UA Bilirubin 0 mg/dL Last Edit by Roula Lopez [facility] on 03/14/24 10:36 UA Glucose 0 mg/dL Last Edit by Roula Lopez [facility] on 03/14/24 10:36 Results Reviewed Results Reviewed: Laboratory Last Values Urine pH (Auto) 5.5 03/14/24 10:27 Specific [place] (Auto) 1.030 03/14/24 10:27 Urine Protein (Auto) 0 mg/dL 03/14/24 10:27 Glucose (UA)(Auto) 0 mg/dL 03/14/24 10:27 Urine Ketones (Auto) Negative 03/14/24 10:27 Urine Blood (Auto) 0 Arun/uL 03/14/24 10:27 Urine Nitrite (Auto) Negative 03/14/24 10:27 Urine Bilirubin (Auto) 0 mg/dL 03/14/24 10:27 Urine Urobilinogen (Auto) 0.2 mg/dL 03/14/24 10:27 Leukocyte Esterase (Auto) 0 Jose Manuel/uL 03/14/24 10:27 Assessment & Plan Assessment & Plan (1) H/O balanitis: Code(s): Z87.438 - Personal history of other diseases of male genital organs Category: Medical (2) Status post routine circumcision: Code(s): Z98.890 - Other specified postprocedural states Category: Medical Plan Instructed on incision care Orders: Orders AMB Urinalysis Automated 03/14/24 Z13.9 - Encounter for screening, unspecified Patient Instructions: The patient had an opportunity to ask questions regarding treatment plan. The patient expressed understanding and agreement with the above treatment plan. The patient is aware they should contact our office by phone for worsening of their current condition or the appearance of new symptoms. Compliance is encouraged with any medications and followup testing that is ordered. It is a privilege to be allowed the opportunity to participate in the urologic care of your patient. If you have any questions or concerns regarding treatment for the above conditions please do not hesitate to contact me. The office telephone contact is [phone]. This note is constructed in part using voice recognition software. While every effort has been made to ensure accuracy heat treater apprentice errors may have been included. Yours sincerely, Estrella Lawrence MD Coding Level of Care Code Est Pt Level 3 (84340) Diagnoses H/O balanitis Z87.438 Status post routine circumcision Z98.890
== END 2024-03-14 10:54 | disposition home or self-care (01) ==
PROVIDERS: PCP Nurse Practitioner Family; Visit Provider Urology
DX: Z87.438 Personal history of other diseases of male genital organs (principal); Z98.890 Other specified postprocedural states
CPT/HCPCS: 99213

== ENCOUNTER → 2024-03-14 10:16 | Outpatient (BNVA) | payer OTHER, SELFPAY | PROVIDERS: PCP Nurse Practitioner Family; Visit Provider Urology | DX: Z48.89 Encounter for other specified surgical aftercare (principal); Z87.438 Personal history of other diseases of male genital organs | CPT/HCPCS: 81003 ==

== ENCOUNTER 2024-05-10 09:21 | Outpatient (AMB) | payer OTHER, SELFPAY ==
[2024-05-10 09:26] VITALS: BMI 34.8
--- NOTE | 2024-05-10 09:26 | A.OFFVIS_ITS ---
VS Expanded 05/10/24 09:26 05/10/24 09:37 Height 5 ft 11 in 5 ft 11 in Weight 249 lb 9.012 oz 249 lb BMI 34.8 34.7 Intake Visit Reasons: fatty acid/CONFIRMED Allergies Seasonal Allergies Allergy (Intermediate, Verified 03/14/24 10:19) Sneezing amoxicillin [AMOXICILLIN] Allergy (Mild, Verified 03/14/24 10:19) HIVES Penicillins [PENICILLINS] Allergy (Mild, Verified 03/14/24 10:19) HIVES penicillin V Allergy (Unknown, Verified 03/14/24 10:19) Swelling Nutrition Presentation Details: Pt presents for MNT f/u for obesity food frequency fish: 0-1/m fruits 2/ wk dairy: 5+ non starchy vex/wk nuts /seeds: not including beverages: water/low sugar beverages 6 cups/d physical activity: daily life activities gym membership=not participating BS Monitoring Most Recent Diabetes Results: No Data to Display [facility] Medical History No pertinent past medical history Surgical History History of appendectomy Family History Other Substance abuse Social History Housing: House Alcohol intake: never Patient Tobacco Use Status: Never used Tobacco e-Cigarette/Vaping Use: Never Used service: No Current occupational status: employed 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 Cognitive needs: No Hearing needs: No Vision needs: Yes Assessment & Plan Assessment & Plan (1) Obesity (BMI 30-39.9): Code(s): E66.9 - Obesity, unspecified Category: Medical Plan: Wt: 115 Kg ( 12/2023 ), 114kg 01/2024), 114 kg (05/15) Est kcal needs as per MSJ: 2600 (40% carb, 30% protein/fat) Est fluid needs as per 25-30 ml/d: 3450 Est prot per day as per 1 g/kg bw: 115 Recommend fiber intake : 8-10 g per day and gradually increase to 25-28 g per day for women and 35-38 g for men or as tolerated Recommend sodium intake per day : less than 2000 mg Educated patient on: ( R = reviewed V = verbalizes understanding N/R = needs review N/A = not applicable * Food sources of carbohydrate, adequate serving sizes and its role in various health conditions: R V N/R * Differences between complex carbohydrates a simple carbohydrates, role of fiber in diet: R * Lean protein sources of foods: R V NR * Differences between types of fats and role in diet (mono on saturated fat fatty acids, saturated fatty acids, trans fats): R V N/R * Food sources of sodium in salt and healthy modifications for heart health in kidney health: R V R/V * Vitamins and minerals: R * Healthy plate method concept: R * mindful eating : R * Physical activity: Benefits a precaution: R V * Patient Instructions: Include fiber rich foods in your daily meals: choose a fruit at [employer] on a daily basis (fresh, canned, applesauce, fruit cups ok) have araujo salad at home Coding Level of Care Code Nutr Indiv Subseq (18771) Diagnoses Obesity (BMI 30-39.9) E66.9 Time Spent (min) 20
[2024-05-10 09:37] VITALS: BMI 34.7
== END 2024-05-10 11:28 | disposition home or self-care (01) ==
PROVIDERS: PCP Nurse Practitioner Family; Visit Provider Dietitian, Registered
DX: E66.9 Obesity, unspecified (principal)

== ENCOUNTER → 2024-05-10 09:21 | Outpatient (BNVA) | payer OTHER, SELFPAY | PROVIDERS: PCP Nurse Practitioner Family; Visit Provider Dietitian, Registered | DX: E66.9 Obesity, unspecified (principal); Z68.34 Body mass index [BMI] 34.0-34.9, adult; Z71.3 Dietary counseling and surveillance | CPT/HCPCS: 97803 ==

== ENCOUNTER 2024-08-24 10:50 | Outpatient (AMB) | payer OTHER, SELFPAY ==
--- NOTE | 2024-08-24 11:04 | A.OFFVIS_ITS ---
Vital Signs 08/24/24 11:09 Height 5 ft 11 in Weight 252 lb BMI 35.1 BP 129/63 Blood Pressure Location Rt brachial Position Sitting Respiration 16 Pulse 90 Pulse Source Pulse Oximeter Temp 98.0 F Temp Source Oral Pulse Oximetry (%) 97 Oxygen Delivery Method Room Air Intake Visit Reasons: Rash; episodes of dizziness Intake Note: patient here c/o rash on both arms for years and dizziness episodes Carpet Weaver Required: No Allergies Seasonal Allergies Allergy (Intermediate, Verified 08/24/24 11:08) Sneezing amoxicillin [AMOXICILLIN] Allergy (Mild, Verified 08/24/24 11:08) HIVES Penicillins [PENICILLINS] Allergy (Mild, Verified 08/24/24 11:08) HIVES penicillin V Allergy (Unknown, Verified 08/24/24 11:08) Swelling Do you need a note to return to daycare/school/sports/work: No HPI Comments Details: 28-year-old male, accompanied by his and child, presents with complaints of non itchy rash to both arms for several years. The rash comes and goes. He also reports two episodes of dizziness/loss of balance earlier this month and yesterday; the first episode, he got out of bed and his gait was unsteady; yesterday was the second episode, he was sitting down when he felt dizzy and completely improved after he ate. He admits to inadequate hydration. He denies dizziness with position changes. No acute symptoms at this time. He request a referral for vasectomy. 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 Cognitive needs: No Hearing needs: No Vision needs: Yes Review of Systems Const Details: Const Denies chills, Denies fatigue, Denies fever(s), Denies headache(s) and Denies weakness ENT Denies dizziness and Denies headache(s) Card Denies chest pain, Denies lightheadedness, Denies dyspnea and Denies other (Palpitations) Resp Denies cough, Denies dyspnea, Denies wheezing and Denies other ( shortness of breath) GI Denies abdominal pain, Denies melena, Denies hematochezia, Denies change in bowel habits, Denies dyspepsia and Denies nausea Denies hematuria and Denies dysuria Musc Denies abnormal gait, Denies myalgias, Denies arthralgias, Denies numbness and Denies tingling Skin/Breast Reports rash, Denies unusual bruising and Denies wounds Neuro Denies abnormal gait, Denies dizziness, Denies headache(s), Denies memory loss, Denies numbness, Denies Sensory deficit (Neuro), Denies tingling and Denies weakness Psych Denies anxiety, Denies depression, Denies memory loss Endo Denies cold intolerance, Denies fatigue, Denies heat intolerance, Denies polydipsia and Denies polyuria Aller/Immun Denies wheezing Physical Exam Vital Signs: Last Vital Signs Temp 98.0 F 08/24/24 11:09 Pulse 90 08/24/24 11:09 Resp 16 08/24/24 11:09 BP 129/63 08/24/24 11:09 Pulse Ox 97 08/24/24 11:09 Oxygen Delivery Method Room Air 08/24/24 11:09 BMI result Body Mass Index 35.1 Const Other: General: no acute distress and well developed Nutritional Appearance: well nourished Orientation/consciousness: patient oriented x3 HENWA Head: Yes normocephalic and Yes atraumatic Eyes General: appearance normal, both eyes and all related structures Pupils: Equal, round and reactive pupils present EOM: EOMs intact bilaterally Resp Effort & Inspection: normal respiratory effort Auscultation: clear to auscultation bilaterally Cardio Rate: regular rate Rhythm: regular rhythm Heart sounds: S1 normal heart sound present, S2 normal heart sound present, no gallops, no murmurs and no rubs GI Palpation (GI): No Abdominal aortic bruit present, Soft to palpation, nontender, No hepatosplenomegaly present and No Rebound tenderness present Auscultation: normal bowel sounds General: Yes no CVA tenderness Back/Spine/Pelvis Back: no CVA tenderness Cervical Spine: cervical ROM normal and No Cervical spine tenderness Thoracic/Lumbar Spine: thoraco-lumbar ROM normal, No pain with thoraco-lumbar ROM, No thoracic spinal tenderness and No lumbar spinal tenderness Extrem General: Yes normal to inspection, No edema and No calf tenderness Skin General: warm and dry. Normal skin color. Normal skin turgor Lesions: no lesions Rashes: Slightly red, round patches with dry skin noted to the right upper arm and left upper and forearm Trauma: no lacerations or abrasions Wounds: no wounds Nails: normal Neuro General: patient oriented x3, gait normal and no focal neuro deficit Cranial nerves: Yes Equal, round and reactive pupils present Cognition (Neuro): normal cognition Gait exam (Neuro): Normal gait present Sensory Exam: No Sensory deficit (Neuro) Psych Appearance: grossly normal Affect: normal affect Attitude: cooperative Thought process: Normal thought process present Assessment & Plan Assessment & Plan (1) Dizziness: Code(s): R42 - Dizziness and giddiness Category: Medical Plan: Episodes of dizziness/unsteady gait twice this month. No dizziness with position changes. Likely due to poor hydration. Adequate hydration with water encouraged. Will check CBC and CMP and make changes as needed. Follow-up with worsening or new symptoms. Verbalized understanding and agreed with treatment plan. (2) Eczema: Code(s): L30.9 - Dermatitis, unspecified Category: Medical Plan: Non itchy rash that comes and goes to both arms for several years. Slightly red, round patches with dry skin noted to the right upper arm and left upper and forearm. Betamethasone cream ordered; advised to apply as prescribed. Follow-up with worsening or new signs and symptoms. Verbalized understanding and agreed with treatment plan. (3) Vasectomy evaluation: Code(s): Z30.09 - Encounter for other general counseling and advice on contraception Category: Medical Plan: Referred to [facility] urology for vasectomy as requested. Orders: Orders Complete Blood Count no Diff Today R42 - Dizziness and giddiness Comprehensive Met. Panel Today R42 - Dizziness and giddiness Referrals Urology Referral Z30.09 - Encounter for other general counseling and advice on contraception Medications: New betamethasone valerate 0.1% 1 appl topical BID PRN 45 grams 2RF skin irritation Coding Level of Care Code Est Pt Level 4 (20779) Diagnoses Dizziness R42 Eczema L30.9 Vasectomy evaluation Z30.09
[2024-08-24 11:09] VITALS: BP 129/63; PULSE 90; RESP 16; TEMP 36.7; O2SAT 97; BMI 35.1
--- OUTSIDE RECORDS SUMMARY | 2024-08-24 13:00 | XMS_ITS | Encounter Summary ---
Author Organization [facility] Address [address] [place] [address] Phone Care Team Providers Care Permit Agent Name Role Phone Rosi Gordon MD Primary Care Provider Encounter Details Date Type Department Care Team (Late st Contact Info) Description 04/22/2013 Documentation EM Family Medicine [address] [place] [address] Family Medicine, Physician [address] [place], [place] [phone] Social History Tobacco Use Types Packs/Day Years Used Date Smoking Tobacco: Never Assessed Sex and Gender Information Value Date Recorded Sex Assigned at Not on file Legal Sex Male 4:56 PM EDT Gender Identity Not on file Sexual Orientation Not on file documented as of this encounter Plan of Treatment Not on file documented as of this encounter Visit Diagnoses Not on filedocumented in this encounter Care Teams Permit Agent Relationship Specialty Start Date End Date Rosi Gordon MD [address] [place] [address] RANDA Edmonds [address] PCP - General 01/30/17 11/20/22 documented as of this encounter
--- OUTSIDE RECORDS SUMMARY | 2024-08-24 13:00 | XMS_ITS | Encounter Summary ---
Author Organization [facility] Address [address] [place] [address] Phone Care Team Providers Care It Communications Specialist Name Role Phone Rosi Gordon MD Primary Care Provider [phone] Encounter Details Date Type Department Care Team (Late st Contact Info) Description 01/12/2012 Documentation EM Family Medicine [address] [place] [address] Family Medicine, Physician [address] [place], [place] [phone] Social History Tobacco Use Types Packs/Day Years [...] on filedocumented in this encounter Care Teams It Communications Specialist Relationship Specialty Start Date End Date Rosi Gordon MD [address] [place] [address] RANDA Edmonds [id number] PCP - General 01/30/17 11/20/22 documented as of this encounter
--- OUTSIDE RECORDS SUMMARY | 2024-08-24 13:00 | XMS_ITS | Encounter Summary ---
Author Organization [facility] Address [address] [place] [address] Phone Care Team Providers Care Toddler Teacher Name Role Phone Rosi Gordon MD Primary Care Provider [phone] Encounter Details Date Type Department Care Team (Late st Contact Info) Description 06/14/2013 Documentation EM Family Medicine [address] [place] [address] Family Medicine, Physician [address] [place], [place] [phone] Social History Tobacco Use Types Packs/Day Years [...] on filedocumented in this encounter Care Teams Toddler Teacher Relationship Specialty Start Date End Date Rosi Gordon MD [address] [place] [address] RANDA Edmonds [id number] PCP - General 01/30/17 11/20/22 documented as of this encounter
--- OUTSIDE RECORDS SUMMARY | 2024-08-24 13:00 | XMS_ITS | Encounter Summary ---
Author Organization [facility] Address [address] [place] [address] Phone Care Team Providers Care Bricklayer'S Assistant Name Role Phone Rosi Gordon MD Primary Care Provider [phone] Encounter Details Date Type Department Care Team (Late st Contact Info) Description 02/05/2017 Conversion Encounter [facility] [address] [place] [address] Social History Tobacco Use Types Packs/Day Years Used Date Smoking Tobacco: Unknown Comments:Unknown if ever smo ked Sex and Gender Information Value Date Recorded Sex Assigned at Not on file Legal Sex Male 4:56 PM EDT Gender Identity Not on file Sexual Orientation Not on file documented as of this encounter Plan of Treatment Not on file documented as of this encounter Visit Diagnoses Not on filedocumented in this encounter Care Teams Bricklayer'S Assistant Relationship Specialty Start Date End Date Rosi Gordon MD [address] [place] [address] PCP - General 01/30/17 11/20/22 documented as of this encounter
--- OUTSIDE RECORDS SUMMARY | 2024-08-24 13:00 | XMS_ITS | Clinical Summary ---
Author Organization [facility] Address [address] [place] [address] Phone Care Team Providers Care Waterworks Pump Station Operator Name Role Phone Unavailable Primary Care Provider Unavailabl e Immunizations Immunization Administration Dates Next Due DTP 04/13/1996 DTaP 5 05/26/2000, 8,04/11/1997, 997 H1N1 05/24/2009 HPV, Quadrivalent 08/26/2013,04/13/2013,05/07/20 12 Hep A, Adult 2014 Hep A, ped/adol 08/26/2013 Hep B, ped/adol 09/27/1996,1995,1995 Hib (PRP-T) 11/14/1997, 7,09/27/1996, 996 IPV 05/26/2000 Influenza Split 04/13/2013,05/07/2012,04/24/2011 Influenza, intranasal, trivalent 02/19/2010 MMR 05/26/2000,04/11/1997 Meningococcal Conj (Menactra) MCV4P 06/20/2008 OPV 04/11/1997,09/27/1996,04/13/1996 Tdap 06/20/2008 Varicella 10/02/1998 Family History Relation Name Status Comments Brother Alive Brother: ADD/AD HD Mother Mother: Asthma, Migraines Other Family history of Hyperlipidemia, Family history of Strabismus, Family history of *Heart Disease, Family history of *Sudden /[place] under 55, Family history of *Dental caries, Family history of Obesity, Family history of Diabetes mellitus, No family history of *CVA/Stroke Social History Tobacco Use Types Packs/Day Years Used Date Smoking Tobacco: Unknown Comments:Unknown if ever smo ked Sex and Gender Information Value Date Recorded Sex Assigned at Not on file Legal Sex Male 4:56 PM EDT Gender Identity Not on file Sexual Orientation Not on file Last Filed Vital Signs Vital Sign Reading Time Taken Comments Blood Pressure 118/69 2014 12:00 AM EDT Pulse 87 2014 12:00 AM EDT Temperature 36.3 ??C (97.3 ??F) 2014 12:00 AM E DT Respiratory Rate - - Oxygen Saturation - - Inhaled Oxygen Concentration - - Weight 94.9 kg (209 lb 4.8 oz) 2014 12:00 AM EDT Height 177.8 cm (5' 10 ) 2014 12:00 AM EDT Body Mass Index 30.03 2014 12:00 AM EDT Plan of Treatment Health Maintenance Due Date Last Done Comments Hepatitis B Vaccines (3 of 3 - 3-dose series) 11/22/1996 09/27/1996, 1995, 1995 Varicella Vaccines (2 of 2 - 2-dose childhood series) 03/19/2010 10/02/1998 Consider Men B Vaccine (1 of 2 - Bexsero 2-dose series) 2011 Influenza Vaccines (#1) 2024 04/13/20 13, 05/07/2012, 04/24/2011, Additional history exists COVID-19 Vaccine ( season) 2024 DTaP,Tdap,and Td Vaccines (8 - Td or Tdap) 01/13/2027 01/13/2017, 06/20/2008, 05/26/2000, Additional history exists HIB Vaccines Completed 11/14/1997, 03/23, 09/27/1996, Additional history exists IPV Vaccines Completed 05/26/2000, 03/23, 09/27/1996, Additional history exists MMR Vaccines Completed 05/26/2000, 04/11/1997 Meningococcal Vaccine Aged Out 06/20/2008 No trino elias eligible based on patient's age to complete this topic HPV Vaccines Completed 08/26/2013, 03/23, 05/07/2012 Hepatitis A Vaccines Completed 2014, 08/27/19 14 Men B Vaccine Aged Out No longer elig ible based on patient's age to complete this topic Pneumococcal Vaccine Aged Out No long er eligible based on patient's age to complete this topic
== END 2024-08-24 11:56 | disposition home or self-care (01) ==
PROVIDERS: PCP Nurse Practitioner Family; Visit Provider Nurse Practitioner Family
DX: R42 Dizziness and giddiness (principal); L30.9 Dermatitis, unspecified; Z30.09 Encounter for other general counseling and advice on contraception

== ENCOUNTER 2024-08-24 12:40 | Outpatient (REF) | payer OTHER, SELFPAY ==
[2024-08-24 14:22] LABS: Hematocrit 44.1 % (42.0-52.0); Hemoglobin 15.3 g/dl (14.0-18.0); Mean Corpuscular HGB Conc 34.7 g/dl (31.0-36.0); Mean Corpuscular Hemoglobin 29.1 pg (27.0-33.0); Mean Platelet Volume 10.6 fL (9.4-12.4); Platelet Count 294 X10*3/uL (160-400); Red Blood Count 5.25 X10*6/uL (4.60-5.80); Red Cell Distribution Width 12.8 % (11.0-16.0); White Blood Count 9.3 X10*3/uL (4.8-10.8)
[2024-08-24 14:37] LABS: Alanine Aminotransferase 67 U/L (0-40); Albumin Level 4.6 g/dL (3.5-5.0); Alkaline Phosphatase 58 U/L (39-117); Anion Gap 9 (12-20); Aspartate Amino Transferase 37 U/L (5-37); Bilirubin Total 0.5 mg/dL (0.0-1.0); Blood Urea Nitrogen 10 mg/dL (9-16); Calcium 9.3 mg/dL (8.4-10.2); Carbon Dioxide 28 mmol/L (22-29); Chloride 108 mmol/L (96-108); Estimated Glomerular Filt Rate > 60; Glucose Random 102 mg/dL (60-115); Sodium 141 mmol/L (135-145); Total Protein 8.2 g/dL (6.5-8.0)
--- OUTSIDE RECORDS SUMMARY | 2024-08-24 15:00 | XMS_ITS | Encounter Summary ---
Author Organization [facility] Address [address] [place] [address] Phone Care Team Providers Care Herb Digger Name Role Phone Rosi Gordon MD Primary Care Provider [phone] Encounter Details Date Type Department Care Team (Late st Contact Info) Description 02/05/2017 Conversion Encounter [facility] [address] [place] [address] Social History Tobacco Use Types Packs/Day Years [...] on filedocumented in this encounter Care Teams Herb Digger Relationship Specialty Start Date End Date Rosi Gordon MD [address] [place] [address] PCP - General 01/30/17 11/20/22 documented as of this encounter
--- OUTSIDE RECORDS SUMMARY | 2024-08-24 15:00 | XMS_ITS | Encounter Summary ---
Author Organization [facility] Address [address] [place] [phone] Phone Care Team Providers Care Diversity Specialist Name Role Phone Rosi Gordon MD Primary Care Provider Encounter Details Date Type Department Care Team (Late st Contact Info) Description 01/12/2012 Documentation EM Family Medicine [address] [place] [address] Family Medicine, Physician [address] [place], [place] [phone] Social History Tobacco Use Types Packs/Day Years [...] on filedocumented in this encounter Care Teams Diversity Specialist Relationship Specialty Start Date End Date Rosi Gordon MD [address] [place] [address] RANDA Edmonds [address] PCP - General 01/30/17 11/20/22 documented as of this encounter
--- OUTSIDE RECORDS SUMMARY | 2024-08-24 15:00 | XMS_ITS | Clinical Summary ---
Author Organization [facility] Address [address] [place] [address] Phone Care Team Providers Care Extrusion Die Template Maker Name Role Phone Unavailable Primary Care Provider [...] of *Heart Disease, Family history of *Sudden /[place] under 55, Family history of *Dental caries, [...] 2 - 2-dose childhood series) 03/19/2010 10/02/1998 Influenza Vaccines (#1) 2024 04/13/20 13, 05/07/2012, [...]
--- OUTSIDE RECORDS SUMMARY | 2024-08-24 15:00 | XMS_ITS | Encounter Summary ---
Author Organization [facility] Address [address] [place] [address] Phone Care Team Providers Care Kilnman Name Role Phone Rosi Gordon MD Primary Care Provider Encounter Details Date Type Department Care Team (Late st Contact Info) Description 06/14/2013 Documentation EM Family Medicine [address] [place] [address] Family Medicine, Physician [address] [place], [place] [phone] Social History Tobacco Use Types Packs/Day Years [...] on filedocumented in this encounter Care Teams Kilnman Relationship Specialty Start Date End Date Rosi Gordon MD [address] [place] [address] RANDA Edmonds [address] PCP - General 01/30/17 11/20/22 documented as of this encounter
--- OUTSIDE RECORDS SUMMARY | 2024-08-24 15:00 | XMS_ITS | Encounter Summary ---
Author Organization [facility] Address [address] [place] [address] Care Team Providers Care Youth Teacher Name Role Phone Nicole Gonzalez MD Primary Care Provider [phone] Encounter Details Date Type Department Care Team Description 02/08/2019 Body Repairer Report Medical Records [address] [place] [address] Ankur Hughes, PA-C Social History Tobacco Use Types Packs/Day Years Used Date Smoking Tobacco: Former Smokeless Tobacco: Never Comments:Used to smoke cigar ettes Alcohol Use Standard Drinks/Week Comments Yes 0 (1 standard drink = 0.6 oz pure alcohol) 2 beers, 3 shots when goes out every couple of months Sex Assigned at Date Recorded Not on file documented as of this encounter Plan of Treatment Not on file documented as of this encounter Visit Diagnoses Not on filedocumented in this encounter Care Teams Youth Teacher Relationship Specialty Start Date End Date Nicole Gonzalez MD [address] [place], [place] [phone] PCP - General Internal Medicine 12/27/14 documented as of this encounter
--- OUTSIDE RECORDS SUMMARY | 2024-08-24 15:00 | XMS_ITS | Encounter Summary ---
Author Organization [facility] Address [address] [place] [address] Phone Care Team Providers Care Internal Controls Manager Name Role Phone Rosi Gordon MD Primary Care Provider Encounter Details Date Type Department Care Team (Late st Contact Info) Description 04/22/2013 Documentation EM Family Medicine [address] [place] [address] Family Medicine, Physician [address] [place], [place] [phone] Social History Tobacco Use Types Packs/Day Years [...] on filedocumented in this encounter Care Teams Internal Controls Manager Relationship Specialty Start Date End Date Rosi Gordon MD [address] [place] [address] RANDA Edmonds [address] PCP - General 01/30/17 11/20/22 documented as of this encounter
== END 2024-08-24 12:41 | disposition home or self-care (01) ==
LOC: HO.WFDLDS 12:40
PROVIDERS: Visit Provider Nurse Practitioner Family
DX: R42 Dizziness and giddiness (principal)
CPT/HCPCS: 36415; 80053; 85027

== ENCOUNTER 2024-10-27 08:11 | Outpatient (AMB) | payer OTHER, SELFPAY ==
--- NOTE | 2024-10-27 08:13 | A.OFFVIS_ITS ---
Intake Visit Reasons: Vasectomy consult Intake Note: Patient is present for vasectomy consult * 4 children, not expecting Urology Medication:None Antibiotic Allergy:AMOXICILLIN, PENICILLINS Blood Thinner:None Assistant Director Of Public Works Required: No Allergies Seasonal Allergies Allergy (Intermediate, Verified 10/27/24 08:14) Sneezing amoxicillin [AMOXICILLIN] Allergy (Mild, Verified 10/27/24 08:14) HIVES Penicillins [PENICILLINS] Allergy (Mild, Verified 10/27/24 08:14) HIVES penicillin V Allergy (Unknown, Verified 10/27/24 08:14) Swelling Medication List - Last Reconciled 10/27/24 by Estrella Lawrence MD betamethasone valerate 0.1% 1 appl topical BID PRN HPI Comments Details: 10/27/24--Hever is a 28-year-old male who is here for discussion regarding vasectomy evaluation. He had a circumcision done February 2024 which has healed well. He denies any issues regarding that procedure. He has 4 children 2 boys and 2 girls. Vasectomy procedure was discussed at length with the patient. He was informed that vasectomy is a safe, permanent, and effective form of control but there are risks involved. It may involve risk of hematoma, procedure failure which is rare, sperm granuloma which may cause mild pain, and congestion which may cause sense of pressure and generally resolves after several weeks. Also discussed is the reported post vasectomy pain syndrome with chronic testicular pain which is uncommon <5%. 03/14/24--Hever is here for follow-up he is status post circumcision 3 weeks ago. He denies pain. He states he noted a little bit of redness in the area. On examination there is some mild irritation along the dorsal aspect of the incision the ventral aspect is healing well. I have discussed with him trying to keep the area dry we will give him some gauze. He was also putting soap directly on the incision which I have instructied him not to do. 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 Cognitive needs: No Hearing needs: No Vision needs: Yes Review of Systems Const All systems reviewed & are unremarkable except as noted in HPI and below Reports no additional complaints Eyes Reports no additional complaints ENT Reports no additional complaints Card Reports no additional complaints Resp Reports no additional complaints GI Reports no additional complaints Reports as per HPI Musc Reports no additional complaints Skin/Breast Reports system reviewed and no additional complaints, except as documented Neuro Reports no additional complaints Psych Reports no additional complaints Endo Reports no additional complaints Quincy/Lymph Reports no additional complaints Aller/Immun Reports no additional complaints Assessment & Plan Assessment & Plan (1) Vasectomy evaluation: Code(s): Z30.09 - Encounter for other general counseling and advice on contraception Category: Medical (2) Anxiety about health: Code(s): R45.89 - Other symptoms and signs involving emotional state Category: Medical Plan Schedule vasectomy outpatient with sedation Patient Instructions: The patient had an opportunity to ask questions regarding treatment plan. The patient expressed understanding and agreement with the above treatment plan. The patient is aware they should contact our office by phone for worsening of their current condition or the appearance of new symptoms. Compliance is encouraged with any medications and followup testing that is ordered. It is a privilege to be allowed the opportunity to participate in the urologic care of your patient. If you have any questions or concerns regarding treatment for the above conditions please do not hesitate to contact me. The office telephone contact is [phone]. This note is constructed in part using voice recognition software. While every effort has been made to ensure accuracy stack matcher errors may have been included. Yours sincerely, Estrella Lawrence MD Coding Level of Care Code Est Pt Level 4 (07637) Diagnoses Vasectomy evaluation Z30.09 Anxiety about health R45.89
--- OUTSIDE RECORDS SUMMARY | 2024-10-27 08:29 | XMS_ITS | Encounter Summary ---
Author Organization [facility] Address [address] [place] [phone] Phone Care Team Providers Care Sleeve Bottom Feller Name Role Phone Rosi Gordon MD Primary Care Provider Encounter Details Date Type Department Care Team (Late st Contact Info) Description 04/22/2013 Documentation EM Family Medicine [address] [place] [address] Family Medicine, Physician [address] [place], [place] [phone] Social History Tobacco Use Types Packs/Day Years [...] on filedocumented in this encounter Care Teams Sleeve Bottom Feller Relationship Specialty Start Date End Date Rosi Gordon MD [address] [place] [address] RANDA [place]s [id number] PCP - General 01/30/17 11/20/22 documented as of this encounter
--- OUTSIDE RECORDS SUMMARY | 2024-10-27 08:29 | XMS_ITS | Encounter Summary ---
Author Organization [facility] Address [address] [place] [address] Care Team Providers Care Digital Marketing Intern Name Role Phone Nicole Gonzalez MD Primary Care Provider [phone] Encounter Details Date Type Department Care Team Description 02/08/2019 Dump Motor Operator Report Medical Records [address] [place] [id number] Ankur Hughes, PA-C Social History Tobacco Use [...] on filedocumented in this encounter Care Teams Digital Marketing Intern Relationship Specialty Start Date End Date Nicole Gonzalez MD [address] [place], [place] [phone] PCP - General Internal Medicine 12/27/14 documented as of this encounter
--- OUTSIDE RECORDS SUMMARY | 2024-10-27 08:29 | XMS_ITS | Encounter Summary ---
Author Organization [facility] Address [address] [place] [address] Phone Care Team Providers Care Admissions Nurse Name Role Phone Rosi Gordon MD Primary Care Provider Encounter Details Date Type Department Care Team (Late st Contact Info) Description 02/05/2017 Conversion Encounter [facility] [place] [address] [place] [address] Social History Tobacco Use Types Packs/Day Years [...] on filedocumented in this encounter Care Teams Admissions Nurse Relationship Specialty Start Date End Date Rosi Gordon MD [address] [place] [address] PCP - General 01/30/17 11/20/22 documented as of this encounter
--- OUTSIDE RECORDS SUMMARY | 2024-10-27 08:29 | XMS_ITS | Clinical Summary ---
Author Organization [facility] Address [address] [place] [address] Phone Care Team Providers Care Speeder Machine Operator Name Role Phone Unavailable Primary Care [...] of *Heart Disease, Family history of *Sudden /[place] under 55, Family history of *Dental caries, [...]
--- OUTSIDE RECORDS SUMMARY | 2024-10-27 08:29 | XMS_ITS | Encounter Summary ---
Author Organization [facility] Address [address] [place] [phone] Phone Care Team Providers Care Multineedle Shirrer Name Role Phone Rosi Gordon MD Primary Care Provider Encounter Details Date Type Department Care Team (Late st Contact Info) Description 06/14/2013 Documentation EM Family Medicine [address] [place] [address] Family Medicine, Physician [address] [place], [place] [phone] Social History Tobacco Use Types Packs/Day Years [...] on filedocumented in this encounter Care Teams Multineedle Shirrer Relationship Specialty Start Date End Date Rosi Gordon MD [address] [place] [address] [place] [id number] PCP - General 01/30/17 11/20/22 documented as of this encounter
--- OUTSIDE RECORDS SUMMARY | 2024-10-27 08:29 | XMS_ITS | Encounter Summary ---
Author Organization [facility] Address [address] [place] [phone] Phone Care Team Providers Care Oracle Apex Developer Name Role Phone Rosi Gordon MD Primary Care Provider Encounter Details Date Type Department Care Team (Late st Contact Info) Description 01/12/2012 Documentation EM Family Medicine [address] [place] [address] Family Medicine, Physician [address] [place], [place] [phone] Social History Tobacco Use Types Packs/Day Years [...] on filedocumented in this encounter Care Teams Oracle Apex Developer Relationship Specialty Start Date End Date Rosi Gordon MD [address] [place] [address] [place] [id number] PCP - General 01/30/17 11/20/22 documented as of this encounter
== END 2024-10-27 08:56 | disposition home or self-care (01) ==
LOC: HO.HUSH 08:11
PROVIDERS: PCP Nurse Practitioner Family; Visit Provider Urology
DX: Z30.09 Encounter for other general counseling and advice on contraception (principal); R45.89 Other symptoms and signs involving emotional state
CPT/HCPCS: 99214

== ENCOUNTER → 2024-10-27 08:11 | Outpatient (BNVA) | payer OTHER, SELFPAY | PROVIDERS: PCP Nurse Practitioner Family; Visit Provider Urology ==

== ENCOUNTER 2024-12-13 10:01 | Day surgery (SDC) | payer OTHER, SELFPAY ==
[2024-12-09 13:47] VITALS: BMI 35.3
--- OUTSIDE RECORDS SUMMARY | 2024-12-12 16:49 | XMS_ITS | Encounter Summary ---
Author Organization [facility] Address [address] [place] [phone] Phone Care Team Providers Care Biopharmaceutical Rep Name Role Phone Rosi Gordon MD Primary Care Provider Encounter Details Date Type Department Care Team (Late st Contact Info) Description 01/12/2012 Documentation EM Family Medicine [address] [place] [address] Family Medicine, Physician [address] [place], [place] [phone] Social History Tobacco Use Types Packs/Day Years [...] on filedocumented in this encounter Care Teams Biopharmaceutical Rep Relationship Specialty Start Date End Date Rosi Gordon MD [address] [place] [address] [place] [id number] PCP - General 01/30/17 11/20/22 documented as of this encounter
[2024-12-13 10:18] VITALS: BMI 34.6
[2024-12-13 10:22] VITALS: BP 126/80; PULSE 86; RESP 15; TEMP 36.6; O2SAT 96
[2024-12-13] MEDS: Lactated Ringers 1,000 ML 50 ML IVCONT (10:32)
--- NOTE | 2024-12-13 11:00 | W.PM.OPN ---
Operative Note Operative Note Date of Service: 12/13/24 Narrative: Preoperative diagnosis: Anxiety regarding unplanned Postoperative diagnosis: Anxiety regarding unplanned Procedure: Bilateral vasectomy Surgeon: Dr. Estrella Lawrence Anesthesia: General Details of procedure:? The patient was brought into the operating room placed on the OR table in supine position.? Antibiotics confirmed. General anesthesia was administered.? The patient was prepped and draped in the usual sterile fashion. ? Time-out was done per protocol.? Both vasa were palpated through the skin using a 3 finger technique and at the penoscrotal junction. Starting on the right, the vas was elevated using a 3 finger grasping technique. Using the 15 blade knife an incision was made over the vas followed by a sharp spreading instrument the fascia was spread longitudinally in line with the vasa. The vasa was elevated from the scrotum using a ring clamp. Sharp and blunt dissection was used divide the vasal sheath and to strip the vasal sheath from the vasa. The vasal sheath was dissected from the vas in a proximal and distal fashion. This allowed the blood vessels of the vasa to retract from the vasa. The vasa was grasped with a forcep clamp on both sides and elevated from the incision. The vas was clamped on either side and a segment sent for path. 3.0 vicryl was used to apply a suture tie to the vasa and the needle tip cautery was used to cauterize the proximal and caudal end of the vas. Using 4 -0 chromic, the fascia was used to over lay and bury each end of the vas. The similar procedure was repeated on the left side. Both skin incisions were closed with 4-0 chromic. Bacitracin ointment and gauze was applied. The patient tolerated the procedure well. He was brought out of anesthesia. He understands the need to continue to use control methods. A semen sample should be brought for inspection under the microscope in 12 weeks. Drains: none Complications: none
--- NOTE | 2024-12-13 11:00 | MHC.SHP ---
Pre-Procedural Eval Section A - 24 Hr Update-Section A only Date of Service: 12/13/24 The patient is an INPATIENT: No The patient has been examined within 24 hours of the surgical procedure. The History & Physical has been completed within 30 days and I have reviewed it.: Yes Section B - Complete if H&P > 30 days Chief Complaint: Encounter for sterilization Allergies: Allergies Allergy/AdvReac Type Severity Reaction Status Date / Time Seasonal Allergies Allergy Intermediate Sneezing Verified 12/13/24 10:12 amoxicillin (AMOXICILLIN) Allergy Mild HIVES Verified 12/13/24 10:12 Penicillins (PENICILLINS) Allergy Mild HIVES Verified 12/13/24 10:12 penicillin V Allergy Unknown Swelling Verified 12/13/24 10:12 Plan Diagnosis/Plan: Unchanged I have reviewed the history and physical and performed a pertinent physical examination on my patient. No changes have occurred unless specified. Bilateral vasectomy. I discussed risks to include but not limited to bleeding, hematoma, procedure failure which is rare, sperm granuloma which may cause mild pain, and congestion which may cause sense of pressure and generally resolves after several weeks. Also discussed is the reported post vasectomy pain syndrome with chronic testicular pain which is uncommon <5% The patient was advised that it is necessary to use other types of control methods for > 12 weeks and until we send semen for analysis to make sure there is no more sperm in the semen. Time Spent With Patient Time: Total time managing care of this patient today ____ minutes.
--- NOTE | 2024-12-13 11:07 | HO.ANESPROP2 ---
HPI - Anesthesia Eval Consult details Narrative: 29 yo M presenting for a vasectomy PMF Active Problems Active Problems: All Active Problems Anxiety about health (Acute) Vasectomy evaluation (Acute) Eczema (Acute) Dizziness (Acute) Status post routine circumcision (Acute) H/O balanitis (Acute) Low HDL (under 40) (Acute) Elevated ALT measurement (Acute) Uncircumcised male (Acute) Obesity (BMI 30-39.9) (Acute) Normal physical examination, routine (Acute) Laboratory tests ordered as part of a complete physical exam (CPE) (Acute) Past Medical History Medical History No pertinent past medical history Family History Family History Other Substance abuse Family history of problems with anesthesia: No Surgical History Surgical History (Updated 12/13/24 @ 10:12 by Chel Knight RN) Hx of circumcision History of appendectomy History of Problems with Anesthesia: No Social History Social History Housing: House Alcohol intake: never Patient Tobacco Use Status: Never used Tobacco e-Cigarette/Vaping Use: Never Used Use of substances other than those prescribed or required for medical reasons: No Are you DNR?: No Advance Directives: No Advance Directives Information Provided: Yes service: No Current occupational status: employed 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 Cognitive needs: No Hearing needs: No Vision needs: Yes Meds Allergies Allergy/AdvReac Type Severity Reaction Status Date / Time Seasonal Allergies Allergy Intermediate Sneezing Verified 12/13/24 10:12 amoxicillin (AMOXICILLIN) Allergy Mild HIVES Verified 12/13/24 10:12 Penicillins (PENICILLINS) Allergy Mild HIVES Verified 12/13/24 10:12 penicillin V Allergy Unknown Swelling Verified 12/13/24 10:12 Active Medications: Current Medications Fentanyl (Fentanyl Citrate/Pf 100 Mcg/2 Ml Vial) 50 mcg IVPUSH Q5M PRN PRN Reason: Pain, Moderate to Severe (Pain Scale 4-10) Stop: 12/13/24 17:06 Haloperidol Lactate (Haloperidol Lactate 5 Mg/Ml Vial) 1 mg IVPUSH ONCE PRN PRN Reason: intractable nausea Stop: 12/13/24 17:06 Lactated Ringer's (Lr) 1,000 mls @ 50 mls/hr IVCONT .Q20H SANDRA Last Admin: 12/13/24 10:32 Dose: 50 mls/hr Naloxone HCl (Naloxone Hcl 0.4 Mg/Ml Vial) 0.04 mg IVPUSH Q5M PRN PRN Reason: Excessive sedation or RR < 8 Oxycodone HCl (Oxycodone Hcl Immed Release 5 Mg Tablet) 5 mg PO ONCE PRN PRN Reason: Pain, Moderate(Pain Scale 4-6) if no IV Access Stop: 12/13/24 17:06 Home Medications ?Medication ?Instructions ?Recorded ?Confirmed ?Last Taken ?Type No Known Home Meds 12/13/24 12/13/24 Unknown History Exam Exam Date and Time: 12/13/24 1100 Height,Weight and Vital Signs: Height 5 ft 11 in Weight 112.5 kg Last Vital Signs Temp 97.8 F 12/13/24 10:22 Pulse 86 12/13/24 10:22 Resp 15 12/13/24 10:22 BP 126/80 12/13/24 10:22 Pulse Ox 96 12/13/24 10:22 O2 Del Method Room Air 12/13/24 10:22 Airway Mallampati Class: I TM Dist: >3cm Neck ROM: Full Loose/Missing/Broken Teeth: No (patient denies any loose or broken teeth) Heart: S1S2 Lungs: CTAB Assessment and Plan Assessment Anesthesia Assessment: Anesthesia Plan Discussed and Chart Reviewed Final Anesthetic Review Family History of Problems with Anesthesia: No History of Problems with Anesthesia: No NPO: Yes ASA Class: I Final Preanesthetic Review: No Changes in Pt Med Stat, Meds/Allgs Chart Reviewed, Consent Obtained/Reviewed and Anes Risks/Benef Reviewed Patient Risk: Low Procedure Risk: Low Anesthetic Plan Anesthetic Plan: GA and Agree w/ Assess. and Plan Disposition: Standard PACU
[2024-12-13] MEDS: ceFAZolin Sodium/Dextrose,Iso 2 GM/50 ML PIGGYBACK IV (11:37)
[2024-12-13 12:59] VITALS: BP 140/93; PULSE 103; RESP 16; TEMP 36.1; O2SAT 97
[2024-12-13 13:04] VITALS: BP 140/87; PULSE 91; RESP 16; O2SAT 96
[2024-12-13 13:09] VITALS: BP 133/84; PULSE 86; RESP 12; O2SAT 94
[2024-12-13 13:14] VITALS: BP 124/81; PULSE 82; RESP 15; O2SAT 96
--- NOTE | 2024-12-13 13:20 | HO.POSTANES ---
Post Anesthesia Evaluation Post Anesthesia Evaluation Date of Service: 12/13/24 Vital Signs: Vital Signs Temp Pulse Resp BP Pulse Ox O2 Del Method 12/13/24 13:14 82 15 124/81 96 Room Air 12/13/24 13:09 86 12 133/84 94 Room Air 12/13/24 13:04 91 16 140/87 H 96 Room Air 12/13/24 12:59 97 F 103 H 16 140/93 H 97 Room Air 12/13/24 10:22 97.8 F 86 15 126/80 96 Room Air Anesthesia: General LMA Mental Status: Awake Pain Control: Satisfactory Nausea/Vomiting: None Hydration: Adequate Anesthesia-Related Issues: No Anes. Related Issues
[2024-12-13 13:28] VITALS: BP 130/81; PULSE 92; RESP 20; TEMP 36.3; O2SAT 97
== END 2024-12-13 13:42 | disposition home or self-care (01) ==
PROVIDERS: PCP Nurse Practitioner Family; Visit Provider Urology
PROC: (CPT 55250; principal; 2024-12-13 11:50)
DX: Z30.2 Encounter for sterilization (principal); R45.89 Other symptoms and signs involving emotional state; J30.2 Other seasonal allergic rhinitis; Z79.899 Other long term (current) drug therapy; Z88.0 Allergy status to penicillin; Z88.1 Allergy status to other antibiotic agents; Z98.890 Other specified postprocedural states
CPT/HCPCS: 55250; 88302; J0690; J1100; J2003; J2250; J2405; J2704; J2795; J3010

== ENCOUNTER → 2024-12-13 10:01 | Outpatient (BNV) | payer OTHER, SELFPAY | PROVIDERS: PCP Nurse Practitioner Family; Visit Provider Urology | DX: Z30.2 Encounter for sterilization (principal) | CPT/HCPCS: 55250 ==

== ENCOUNTER 2025-02-06 10:19 | Outpatient (AMB) | payer OTHER, SELFPAY ==
--- NOTE | 2025-02-06 10:21 | MHC.PC.OV ---
Vital Signs 02/06/25 10:30 Height 5 ft 11 in Weight 251 lb BMI 35.0 BP 133/70 Blood Pressure Location Rt brachial Position Sitting Respiration 16 Pulse 95 Pulse Source Pulse Oximeter Temp 97.8 F Temp Source Oral Pulse Oximetry (%) 97 Oxygen Delivery Method Room Air Intake Visit Reasons: Annual PE RE Intake Note: patient here for CPE Consulting Project Director Required: No Allergies Seasonal Allergies Allergy (Intermediate, Verified 02/06/25 10:37) Sneezing amoxicillin (AMOXICILLIN) Allergy (Mild, Verified 02/06/25 10:37) HIVES Penicillins (PENICILLINS) Allergy (Mild, Verified 02/06/25 10:37) HIVES penicillin V Allergy (Unknown, Verified 02/06/25 10:37) Swelling Medication List - Last Reconciled 02/06/25 by Racquel Rojas CNP No Known Home Meds Tobacco use date assessed: 02/06/25 Dental Screening Dental Screen Date: 02/06/25 Did you have a dental visit in the last 12 months?: Yes Did you have a dental problem in the last 6 months where you did not have access to dental care?: No Was dental information given to patient?: Patient has dentist HPI HPI Comments History of Present Illness Details 29-year-old male presents for an extended physical exam. Acute issue(s) - He notes that he has been feeling tired and exhausted despite sleeping adequately for the past 1 month. Past Medical History - Elevated ALT, low HDL, myopia (wears glasses), obesity Social History - Nonsmoker. History of vaping, quit in 08/2023. Drinks 3-4 beers occasionally. Denies recreational drug use - Has been making healthy dietary choices. Active but does not exercise. Generally sleep well Health maintenance - Last eye exam was in 07/2024 with [facility]. Advise to provide ophthalmology record for PCP - Last dental visit was 2 weeks ago - Last Tdap was in 01/13/2017 - Has not been vaccinated for the flu this season; declines vaccination [facility] Medical History (Updated 02/06/25 @ 10:50 by Racquel Rojas CNP) No pertinent past medical history Surgical History (Updated 02/06/25 @ 10:29 by Gayla Jean MA) History of vasectomy Hx of circumcision History of appendectomy Family History Other Substance abuse Social History Housing: House Alcohol intake: never Patient Tobacco Use Status: Never used Tobacco e-Cigarette/Vaping Use: Never Used service: No Current occupational status: employed 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 1. Little interest or pleasure in doing things: more than half the days 2. Feeling down, depressed, or hopeless: several days 3. Trouble falling or staying asleep, or sleeping too much: not at all 4. Feeling tired or having little energy: several days 5. Poor appetite or overeating: not at all 6. Feeling bad about yourself - or that you are a failure or have let yourself or your family down: several days 7. Trouble concentrating on things, such as reading the newspaper or watching television: not at all 8. Moving or speaking so slowly that other people could have noticed. Or the opposite - being so fidgety or restless that you have been moving around a lot more than usual: not at all 9. Thoughts that you would be better off or of hurting yourself in some way: not at all Total score: 5 Depression Screening Interpretation: Positive Depression Screening Done: Yes 40163 - PHQ-9 Billing: Yes Source: Developed by Drs. Ronald Barajas, Nury Rubi, Cortes Giraldo and colleagues, with an educational stefano from [employer]. Thrive Questionnaire Date Thrive assessed: 02/06/25 I am a: Patient What is your living situation today?: I have a steady place to live Within the past 12 months, did the food you bought not last and you didn't have the money to get more?: Never true Within the past 12 months, did you worry whether your food would run out before you got money to buy more?: Never true Do you have trouble paying for medicines?: No Do you have trouble getting transportation to medical appointments?: No Do you have trouble paying your heating and electricity bill?: No Do you have trouble taking care of your child, family member or friend?: No Do you have trouble with day-to-day activities such as bathing, preparing meals, shopping, managing finances, etc.?: No Are you currently unemployed and looking for a job?: No Are you interested in more education?: No Please select the resources that you would like help with: None Currently or been in a relationship where the following occur: I choose not to answer THRIVE Score: 0 AUDIT C Alcohol Use Questionnaire (AUDIT-C) 1. How often do you have a drink containing alcohol?: Monthly or less 2. How many drinks containing alcohol do you have on a typical day when you are drinking?: 3 or 4 3. How often do you have six or more drinks on one occasion?: Never Total Score: 2 Score Reviewed/Action Taken: Yes JEAN CARLOS-7 AMB Questionnaire JEAN CARLOS-7 Date JEAN CARLOS - 7 assessed: 02/06/25 Feeling nervous, anxious, or on edge: 0 = Not at all Not being able to stop or control worryin = Several days Worrying too much about different things: 1 = Several days Trouble relaxin = Several days Being so restless that it is hard to sit still: 0 = Not at all Becoming easily annoyed or irritable: 1 = Several days Feeling afraid as if something awful might happen: 1 = Several days Total JEAN CARLOS-7 score (0-4 normal; 5-9 mild; 10-14 moderate; 15-21 severe): 5 Source: Developed by Drs. Ronald Barajas, Nury Rubi, Cortes Giraldo and colleagues, with an educational stefano from [employer]. JEAN CARLOS-7 Assessment Billing JEAN CARLOS-7 Assessment Tool: JEAN CARLOS-7 Assessment 39609 Review of Systems Const Details: Denies chills, Reports fatigue, Denies fever(s), Denies headache(s) and Denies weakness HEENT Denies change in vision, Denies dizziness, Denies headache(s), Denies hearing loss, Denies nasal congestion, Denies sinus pain, Denies sinus pressure and Denies sore throat Card Denies chest pain, Denies lightheadedness, Denies dyspnea and Denies other (palpitations) Resp Denies cough, Denies dyspnea and Denies wheezing GI Denies abdominal pain, Denies melena, Denies hematochezia, Denies change in bowel habits, Denies dyspepsia and Denies nausea Denies hematuria and Denies dysuria Musc Denies abnormal gait, Denies myalgias, Denies arthralgias, Denies numbness and Denies tingling Skin/Breast Denies rash, Denies unusual bruising and Denies wounds Neuro Denies abnormal gait, Denies dizziness, Denies headache(s), Denies memory loss, Denies numbness, Denies Sensory deficit (Neuro), Denies tingling and Denies weakness Psych Denies anxiety, Denies depression and Denies memory loss Endo Denies cold intolerance, Reports fatigue, Denies heat intolerance, Denies polydipsia and Denies polyuria [place]/Lymph Denies easy bleeding and Denies easy bruising Aller/Immun Denies wheezing Physical exam (Primary Care) Vital Signs: Last Vital Signs Temp 97.8 F 02/06/25 10:30 Pulse 95 02/06/25 10:30 Resp 16 02/06/25 10:30 BP 133/70 02/06/25 10:30 Pulse Ox 97 02/06/25 10:30 Oxygen Delivery Method Room Air 02/06/25 10:30 BMI result Body Mass Index 35.0 Tobacco/Smoking Status: Tobacco use Status Tobacco use date assessed 02/06/25 02/06/25 10:34 Patient Tobacco Use Status Never used Tobacco 02/06/25 10:25 e-Cigarette/Vaping Use Never Used 02/06/25 10:25 PHQ-9: PHQ-9 Score PHQ-9: Total score 5 02/06/25 10:25 Depression Screening Interpretation: Positive Thrive Assessment: Date of Thrive Assessment Date Thrive assessed 02/06/25 02/06/25 10:25 Currently or been in a relationship where the following occur: I choose not to answer Const Other: General: no acute distress, well developed, alert and awake Nutritional Appearance: well nourished Orientation/consciousness: patient oriented x3 HENMT Head: Yes normocephalic and Yes atraumatic Ears: hearing grossly normal bilaterally and TM's normal bilaterally General nose exam: Normal external nose present and Normal nares present Mouth: Normal oral and palatal mucosa present and moist mucous membranes Teeth and gingiva: dentition normal Throat: Yes oropharynx normal Eyes Pupils: Equal, round and reactive pupils present and Pupil accommodation reflex normal EOM: EOMs intact bilaterally Neck Neck: Yes normal visual inspection, Yes no lymphadenopathy and Yes trachea midline Thyroid: Thyroid normal Carotids: no bruits Lymphatic: no lymphadenopathy noted Chest Chest palpation & inspection: normal inspection of the chest Resp Effort & Inspection: normal respiratory effort Auscultation: clear to auscultation bilaterally Cardio Rate: regular rate Rhythm: regular rhythm Heart sounds: S1 normal heart sound present, S2 normal heart sound present, no gallops, no murmurs and no rubs Bruits: no abdominal aortic bruits and no carotid bruits GI Palpation (GI): No Abdominal aortic bruit present, Soft to palpation, nontender, No hepatosplenomegaly present and No Rebound tenderness present Auscultation: normal bowel sounds General: Yes no CVA tenderness Back/Spine/Pelvis Back: no CVA tenderness Cervical Spine: cervical ROM normal and No Cervical spine tenderness Thoracic/Lumbar Spine: thoraco-lumbar ROM normal, No pain with thoraco-lumbar ROM, No thoracic spinal tenderness and No lumbar spinal tenderness Skin General: warm and dry. Normal skin color. Normal skin turgor Lesions: no lesions Rashes: no rashes Trauma: no lacerations or abrasions Wounds: no wounds Nails: normal Neuro General: patient oriented x3, gait normal and CN's II-XI intact bilaterally Cranial nerves: Yes Equal, round and reactive pupils present Cognition (Neuro): normal cognition Gait exam (Neuro): Normal gait present Motor exam (neuro): 5/5 motor strength present throughout Sensory Exam: No Sensory deficit (Neuro) Deep tendon reflexes (DTR's): Right patellar reflex intensity grade: 2+ and Left patellar reflex intensity grade: 2+ Extrem General: Yes normal to inspection, No edema and No calf tenderness Psych Appearance: grossly normal Affect: normal affect Attitude: cooperative Thought process: Normal thought process present Coding Level of Care Code Est Pt Level 3 (83231) Est Pt Prev Care 18-39y(14086) Diagnoses Normal physical examination, routine Z00.00 Fatigue R53.83 Obesity (BMI 30-39.9) E66.9 Laboratory tests ordered as part of a complete physical exam (CPE) Z00.00 Additional Codes JEAN CARLOS-7 Assessment Billing - JEAN CARLOS-7 Assessment Tool: JEAN CARLOS-7 Assessment 59238 ([id number]) PHQ-9 - 27034 - PHQ-9 Billing: Yes ([id number]) Assessment & Plan Assessment & Plan (1) Normal physical examination, routine: Code(s): Z00.00 - Encounter for general adult medical examination without abnormal findings Category: Medical Plan: No significant functional limitation noted. Healthy diet and routine exercise encouraged. Advised to perform lab work and follow-up for telehealth visit for labs review in 2-3 weeks. Return sooner with symptoms or concerns. Verbalized understanding and agreed with the plan. (2) Fatigue: Code(s): R53.83 - Other fatigue Category: Medical Plan: He has been feeling tired and exhausted despite sleeping adequately for the past 1 month. Differentials include vitamin-D deficiency, fatigue, hypothyroidism, electrolyte abnormalities. Will check blood work and make changes as needed. Routine exercise encouraged. Follow-up with worsening or new symptoms. Verbalized understanding and agreed with the plan. (3) Obesity (BMI 30-39.9): Code(s): E66.9 - Obesity, unspecified Category: Medical Plan: He currently weighs 251 lb, BMI 35.0. Degenerative makes healthy dietary choices. He is active but does not exercise. Healthy diet and routine exercise encouraged. Follow-up as needed. Verbalized understanding and agreed with the plan. (4) Laboratory tests ordered as part of a complete physical exam (CPE): Code(s): Z00.00 - Encounter for general adult medical examination without abnormal findings Category: Medical Plan: Fasting labs ordered as part of a complete physical exam. Advised to fast for at least 10 hours before getting labs drawn. May drink water Verbalized understanding and agreed with treatment plan. Orders: Orders Lipid Panel Today Z00.00 - Encounter for general adult medical examination without abnormal findings Vitamin D 25-OH Total Today Z00.00 - Encounter for general adult medical examination without abnormal findings UA CC w/rflx Micro + Cult Today Z00.00 - Encounter for general adult medical examination without abnormal findings Complete Blood Count Auto Diff Today Z00.00 - Encounter for general adult medical examination without abnormal findings Comprehensive [place]. Panel Fast Today Z00.00 - Encounter for general adult medical examination without abnormal findings TSH reflex Free T4 Today Z00.00 - Encounter for general adult medical examination without abnormal findings Microalbumin, Random (w Creat) Today Z00.00 - Encounter for general adult medical examination without abnormal findings
[2025-02-06 10:30] VITALS: BP 133/70; PULSE 95; RESP 16; TEMP 36.6; O2SAT 97; BMI 35.0
--- OUTSIDE RECORDS SUMMARY | 2025-02-06 11:22 | XMS_ITS | Encounter Summary ---
Author Organization [facility] Address [address] [place] [address] Phone Care Team Providers Care Crystal Growing Technician Name Role Phone Rosi Gordon MD Primary Care Provider [phone] Encounter Details Date Type Department Care Team (Late st Contact Info) Description 01/12/2012 Documentation EM Family Medicine [address] [place] [address] Family Medicine, Physician [address] [place], [place] [phone] Social History Tobacco Use Types Packs/Day Years [...] on filedocumented in this encounter Care Teams Crystal Growing Technician Relationship Specialty Start Date End Date Rosi Gordon MD [address] [place] [address] RANDA Edmonds [address] PCP - General 01/30/17 11/20/22 documented as of this encounter
== END 2025-02-06 10:49 | disposition home or self-care (01) ==
LOC: HO.HMCFM 10:20
PROVIDERS: PCP Nurse Practitioner Family; Visit Provider Nurse Practitioner Family
DX: Z00.00 Encounter for general adult medical examination without abnormal findings (principal); R53.83 Other fatigue; E66.9 Obesity, unspecified; Z68.35 Body mass index [BMI] 35.0-35.9, adult

== ENCOUNTER → 2025-02-06 10:19 | Outpatient (BNVA) | payer OTHER, SELFPAY | PROVIDERS: PCP Nurse Practitioner Family; Visit Provider Nurse Practitioner Family | DX: Z00.00 Encounter for general adult medical examination without abnormal findings (principal); R53.83 Other fatigue; E66.9 Obesity, unspecified; Z68.35 Body mass index [BMI] 35.0-35.9, adult | CPT/HCPCS: 96127 ==

== ENCOUNTER 2025-02-07 08:53 | Outpatient (REF) | payer OTHER, SELFPAY ==
[2025-02-07 09:18] LABS: MANUAL DIFF FLAG NO
[2025-02-07 09:31] LABS: Hematocrit 43.4 % (42.0-52.0); Hemoglobin 15.2 g/dl (14.0-18.0); Imm Gran Abs Auto 0.03 X10*3/uL (0.00-0.03); Imm Gran Pct Auto 0.4 % (0.0-0.4); Lymphocytes Absolute Auto 1.9 X10*3/uL (1.2-4.9); Mean Corpuscular HGB Conc 35.0 g/dl (31.0-36.0); Mean Corpuscular Hemoglobin 29.1 pg (27.0-33.0); Mean Corpuscular Volume 83.1 fL (80.0-98.0); NRBC Abs Auto 0.000 X10*3/uL (0.0-0.012); NRBC Pct Auto 0.0 /100WBC (0.0-0.2); Platelet Count 240 X10*3/uL (160-400); Red Blood Count 5.22 X10*6/uL (4.60-5.80); White Blood Count 6.7 X10*3/uL (4.8-10.8)
--- OUTSIDE RECORDS SUMMARY | 2025-02-07 09:44 | XMS_ITS | Encounter Summary ---
Author Organization [facility] Address [address] [place] [address] Phone Care Team Providers Care Spragger Name Role Phone Rosi Gordon MD Primary Care Provider Encounter Details Date Type Department Care Team (Late st Contact Info) Description 06/14/2013 Documentation EM Family Medicine [address] [place] [address] Family Medicine, Physician [address] [place], [place] [phone] Social History Tobacco Use Types Packs/Day Years [...] on filedocumented in this encounter Care Teams Spragger Relationship Specialty Start Date End Date Rosi Gordon MD [address] [place] [address] RANDA Edmonds [address] PCP - General 01/30/17 11/20/22 documented as of this encounter
[2025-02-07 09:58] LABS: Appearance Urine Clear; Glucose Urine UA Negative (Negative); PH 5.5 (5.0-9.0); Specific Gravity - Urine 1.020 (1.005-1.025)
[2025-02-07 10:10] LABS: Alanine Aminotransferase 66 U/L (0-40); Albumin Level 4.8 g/dL (3.5-5.0); Alkaline Phosphatase 58 U/L (39-117); Anion Gap 11 (12-20); Aspartate Amino Transferase 42 U/L (5-37); Blood Urea Nitrogen 11 mg/dL (9-16); Calcium 9.3 mg/dL (8.4-10.2); Carbon Dioxide 28 mmol/L (22-29); Chloride 108 mmol/L (96-108); Cholesterol 139 mg/dL (<200); Estimated Glomerular Filt Rate > 60; HDL Cholesterol 28 mg/dL (>40); Potassium 4.2 mmol/L (3.3-5.1); Sodium 143 mmol/L (135-145); Total Protein 7.7 g/dL (6.5-8.0); Triglycerides 216 mg/dL (<150)
[2025-02-07 10:29] LABS: Microalbum/Creatinine Ratio Ur 3.5 ug/mg cr (<30)
== END 2025-02-07 08:54 | disposition home or self-care (01) ==
LOC: HO.LAB 08:53
PROVIDERS: PCP Nurse Practitioner Family; Visit Provider Nurse Practitioner Family
DX: Z00.00 Encounter for general adult medical examination without abnormal findings (principal); Z13.6 Encounter for screening for cardiovascular disorders
CPT/HCPCS: 36415; 80053; 80061; 81003; 82043; 82306; 82570; 84443; 85025

== ENCOUNTER 2025-02-24 13:56 | Outpatient (AMB) | payer OTHER, SELFPAY ==
--- NOTE | 2025-02-24 13:49 | A.OFFPC_ITS ---
Intake Visit Reasons: Tele 2-3 wks labs review Intake Note: patient here for 2-3 wks lab review Pilates Instructor Required: No Allergies Seasonal Allergies Allergy (Intermediate, Verified 02/24/25 13:50) Sneezing amoxicillin (AMOXICILLIN) Allergy (Mild, Verified 02/24/25 13:50) HIVES Penicillins (PENICILLINS) Allergy (Mild, Verified 02/24/25 13:50) HIVES penicillin V Allergy (Unknown, Verified 02/24/25 13:50) Swelling Tobacco use date assessed: 02/24/25 Dental Screening Dental Screen Date: 02/24/25 Did you have a dental visit in the last 12 months?: Yes Did you have a dental problem in the last 6 months where you did not have access to dental care?: No Was dental information given to patient?: Patient has dentist HPI HPI Comments History of Present Illness Details 29-year-old [facility] of recent lab results. He notes fatigue for the past 1 month which has improved since his last visit. He denies other complaints. 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 Ronald Barajas, Nury Rubi, Cortes Giraldo and colleagues, with an educational stefano from [employer]. Review of Systems Const Details: Denies chills, Reports fatigue, Denies fever(s), Denies headache(s) and Denies weakness Cardiac Denies chest pain, Denies claudication, Denies leg edema, Denies lightheadedness, Denies palpitations, Denies dyspnea, Denies dyspnea on exertion, Denies orthopnea and Denies other (Loss of consciousness) Resp Denies cough, Denies excessive phlegm production, Denies dyspnea, Denies dyspnea on exertion, Denies snoring and Denies wheezing Physical exam (Primary Care) Tobacco/Smoking Status: Tobacco use Status Tobacco use date assessed 02/24/25 02/24/25 13:50 Patient Tobacco Use Status Never used Tobacco 02/24/25 13:50 e-Cigarette/Vaping Use Never Used 02/24/25 13:50 Thrive Assessment: Date of Thrive Assessment Date Thrive assessed 02/06/25 02/24/25 13:50 Const Other: Patient is alert and oriented x3 Telehealth Telehealth Telehealth Platform: Telephone Location of provider rendering services: practice address Location of patient: address on file Patient Identification confirmed using: Name, : Yes Telehealth method: voice only Patient verbally consented to treatment: Yes Patient verbally consented to billing insurance company: Yes Patient informed of any privacy concerns related to visit: Yes Coding Level of Care Code Tele Est Pt Level 3 (35784) Diagnoses Vitamin D deficiency E55.9 Fatigue R53.83 Transaminitis R74.01 Dyslipidemia E78.5 Time Spent (min) 15 Assessment & Plan Assessment & Plan (1) Vitamin D deficiency: Code(s): E55.9 - Vitamin D deficiency, unspecified Category: Medical Plan: Recent vitamin-D level is slightly low, 29.7. May explain his recent fatigue. Vitamin-D 3 1000 units daily ordered; advised to take as prescribed. Will recheck vitamin-D level in 2 months. Verbalized understanding and agreed with the plan. (2) Fatigue: Code(s): R53.83 - Other fatigue Category: Medical Plan: Plan as above. (3) Transaminitis: Code(s): R74.01 - Elevation of levels of liver transaminase levels Category: Medical Plan: Recent AST and ALT levels a slightly elevated, 42 and 66 respectively. Healthy diet/weight management encouraged. Fast for 10-12 hours, may drink water and perform fasting lipid panel blood work at least a few days before next visit. Follow-up for telehealth visit in 2 months. Verbalized understanding and agreed with the plan. (4) Dyslipidemia: Code(s): E78.5 - Hyperlipidemia, unspecified Category: Medical Plan: Recent triglycerides are elevated, 216, HDL is low, 28. Advised to limit foods high in saturated fat and avoid foods high in trans fat. Routine exercise encouraged. Perform fasting lipid panel blood work before next visit. Verbalized understanding and agreed with the plan. Orders: Orders Lipid Panel 2 Months E78.5 - Hyperlipidemia, unspecified Liver Panel 2 Months R74.01 - Elevation of levels of liver transaminase levels Vitamin D 25-OH Total 2 Months E55.9 - Vitamin D deficiency, unspecified Medications: New cholecalciferol (vitamin D3) 25 mcg PO DAILY 90 tabs 3RF 90 days
--- OUTSIDE RECORDS SUMMARY | 2025-02-24 14:24 | XMS_ITS | Encounter Summary ---
Author Organization [facility] Address [address] [place] [address] Phone Care Team Providers Care Crane Helper Name Role Phone Rosi Gordon MD Primary Care Provider Encounter Details Date Type Department Care Team (Late st Contact Info) Description 04/22/2013 Documentation EM Family Medicine [address] [place] [address] Family Medicine, Physician [address] [place], [place] [phone] Social History Tobacco Use Types Packs/Day Years [...] on filedocumented in this encounter Care Teams Crane Helper Relationship Specialty Start Date End Date Rosi Gordon MD [address] [place] [address] RANDA Edmonds [address] PCP - General 01/30/17 11/20/22 documented as of this encounter
--- OUTSIDE RECORDS SUMMARY | 2025-02-24 14:24 | XMS_ITS | Encounter Summary ---
Author Organization [facility] Address [address] [place] [address] Phone Care Team Providers Care Dialysis Nurse Name Role Phone Rosi Gordon MD Primary Care Provider [phone] Encounter Details Date Type Department Care Team (Late st Contact Info) Description 02/05/2017 Conversion Encounter [facility] [address] [place] [address] Social History Tobacco Use Types Packs/Day Years [...] on filedocumented in this encounter Care Teams Dialysis Nurse Relationship Specialty Start Date End Date Rosi Gordon MD [address] [place] [address] PCP - General 01/30/17 11/20/22 documented as of this encounter
--- OUTSIDE RECORDS SUMMARY | 2025-02-24 14:24 | XMS_ITS | Encounter Summary ---
Author Organization [facility] Address [address] [place] [address] Phone Care Team Providers Care Automobile Technician Name Role Phone Rosi Gordon MD Primary Care Provider Encounter Details Date Type Department Care Team (Late st Contact Info) Description 06/14/2013 Documentation EM Family Medicine [address] [place] [address] Family Medicine, Physician [address] [place], [place] [phone] Social History Tobacco Use Types Packs/Day Years [...] on filedocumented in this encounter Care Teams Automobile Technician Relationship Specialty Start Date End Date Rosi Gordon MD [address] [place] [address] RANDA Edmonds [address] PCP - General 01/30/17 11/20/22 documented as of this encounter
--- OUTSIDE RECORDS SUMMARY | 2025-02-24 14:24 | XMS_ITS | Encounter Summary ---
Author Organization [facility] Address [address] [place] [address] Phone Care Team Providers Care Trim Mounter Name Role Phone Rosi Gordon MD Primary Care Provider Encounter Details Date Type Department Care Team (Late st Contact Info) Description 01/12/2012 Documentation EM Family Medicine [address] [place] [address] Family Medicine, Physician [address] [place], [place] [phone] Social History Tobacco Use Types Packs/Day Years [...] on filedocumented in this encounter Care Teams Trim Mounter Relationship Specialty Start Date End Date Rosi Gordon MD [address] [place] [address] RANDA Edmonds [address] PCP - General 01/30/17 11/20/22 documented as of this encounter
--- OUTSIDE RECORDS SUMMARY | 2025-02-24 14:24 | XMS_ITS | Clinical Summary ---
Author Organization [facility] Address [address] [place] [address] Phone Care Team Providers Care Cleaner Housekeeping Name Role Phone Unavailable Primary Care Provider [...] of *Heart Disease, Family history of *Sudden /[place] under 55, Family history of *Dental caries, [...] 87 2014 12:00 AM EDT Temperature 36.3 C (97.3 F) 2014 12:00 AM EDT Respiratory Rate - - Oxygen Saturation - [...] childhood series) 03/19/2010 10/02/1998 Influenza Vaccines (#1) 2025 04/13/20 13, 05/07/2012, 04/24/2011, Additional history exists COVID-19 Vaccine ( season) 2025 DTaP,Tdap,and Td Vaccines (8 - Td or [...]
== END 2025-02-24 14:31 | disposition home or self-care (01) ==
LOC: HO.HMCFM 13:56
PROVIDERS: PCP Nurse Practitioner Family; Visit Provider Nurse Practitioner Family
DX: R53.83 Other fatigue (principal); E55.9 Vitamin D deficiency, unspecified; R74.01 Elevation of levels of liver transaminase levels; E78.5 Hyperlipidemia, unspecified

== ENCOUNTER 2025-03-13 08:53 | Outpatient (AMB) | payer OTHER, SELFPAY ==
--- NOTE | 2025-03-13 09:02 | A.OFFVIS_ITS ---
Intake Visit Reasons: Vasectomy follow up/semen analysis Intake Note: Patient is present for vasectomy follow up/semen analysis Urology Medication:None Antibiotic Allergy:AMOXICILLIN, PENICILLINS Blood Thinner:None Rock Wool Applicator Required: No Allergies Seasonal Allergies Allergy (Intermediate, Verified 03/13/25 09:02) Sneezing amoxicillin (AMOXICILLIN) Allergy (Mild, Verified 03/13/25 09:02) HIVES Penicillins (PENICILLINS) Allergy (Mild, Verified 03/13/25 09:02) HIVES penicillin V Allergy (Unknown, Verified 03/13/25 09:02) Swelling Medication List - Last Reconciled 03/13/25 by Estrella Lawrence MD cholecalciferol (vitamin D3) 25 mcg PO DAILY 90 days HPI Comments Details: 03/13/2025--Britton is status post bilateral vasectomy he has brought in semen analysis. The semen was evaluated under the microscope there was no sperm visualized. Denies scrotal or testicular pain. FU prn 10/27/24--Hever is a 28-year-old male who is here for discussion regarding vasectomy evaluation. He had a circumcision done February 2024 which has healed well. He denies any issues regarding that procedure. He has 4 children 2 boys and 2 girls. Vasectomy procedure was discussed at length with the patient. He was informed that vasectomy is a safe, permanent, and effective form of control but there are risks involved. It may involve risk of hematoma, procedure failure which is rare, sperm granuloma which may cause mild pain, and congestion which may cause sense of pressure and generally resolves after several weeks. Also discussed is the reported post vasectomy pain syndrome with chronic testicular pain which is uncommon <5%. 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 Cognitive needs: No Hearing needs: No Vision needs: Yes Review of Systems Const All systems reviewed & are unremarkable except as noted in HPI and below Reports no additional complaints Eyes Reports no additional complaints ENT Reports no additional complaints Card Reports no additional complaints Resp Reports no additional complaints GI Reports no additional complaints Reports as per HPI Musc Reports no additional complaints Skin/Breast Reports system reviewed and no additional complaints, except as documented Neuro Reports no additional complaints Psych Reports no additional complaints Endo Reports no additional complaints Quincy/Lymph Reports no additional complaints Aller/Immun Reports no additional complaints Assessment & Plan Assessment & Plan (1) Status post vasectomy: Code(s): Z98.52 - Vasectomy status Category: Surgical Plan FU prn Patient Instructions: The patient had an opportunity to ask questions regarding treatment plan. The patient expressed understanding and agreement with the above treatment plan. The patient is aware they should contact our office by phone for worsening of their current condition or the appearance of new symptoms. Compliance is encouraged with any medications and followup testing that is ordered. It is a privilege to be allowed the opportunity to participate in the urologic care of your patient. If you have any questions or concerns regarding treatment for the above conditions please do not hesitate to contact me. The office telephone contact is [phone]. This note is constructed in part using voice recognition software. While every effort has been made to ensure accuracy professor of physical education errors may have been included. Yours sincerely, Estrella Lawrence MD Coding Level of Care Code Est Pt Level 3 (45269) Diagnoses Status post vasectomy Z98.52
--- OUTSIDE RECORDS SUMMARY | 2025-03-13 10:15 | XMS_ITS | Encounter Summary ---
Author Organization [facility] Address [address] [place] [address] Phone Care Team Providers Care Audit Manager Name Role Phone Rosi Gordon MD Primary Care Provider [phone] Encounter Details Date Type Department Care Team (Late st Contact Info) Description 02/05/2017 Conversion Encounter [facility] [place] [address] [place] [address] Social History Tobacco Use Types Packs/Day Years [...] on filedocumented in this encounter Care Teams Audit Manager Relationship Specialty Start Date End Date Rosi Gordon MD [address] [place] [address] PCP - General 01/30/17 11/20/22 documented as of this encounter
--- OUTSIDE RECORDS SUMMARY | 2025-03-13 10:15 | XMS_ITS | Encounter Summary ---
Author Organization [facility] Address [address] [place] [address] Phone Care Team Providers Care Blow Machine Tender Starch Spraying Name Role Phone Rosi Gordon MD Primary Care Provider Encounter Details Date Type Department Care Team (Late st Contact Info) Description 06/14/2013 Documentation EM Family Medicine [address] [place] [address] Family Medicine, Physician [address] [place], [place] [phone] Social History Tobacco Use Types Packs/Day Years [...] on filedocumented in this encounter Care Teams Blow Machine Tender Starch Spraying Relationship Specialty Start Date End Date Rosi Gordon MD [address] [place] [address] RANDA Edmonds [address] PCP - General 01/30/17 11/20/22 documented as of this encounter
--- OUTSIDE RECORDS SUMMARY | 2025-03-13 10:15 | XMS_ITS | Encounter Summary ---
Author Organization [facility] Address [address] [place] [address] Phone Care Team Providers Care Shag Truck Driver Name Role Phone Rosi Gordon MD Primary Care Provider [phone] Encounter Details Date Type Department Care Team (Late st Contact Info) Description 04/22/2013 Documentation EM Family Medicine [address] [place] [address] Family Medicine, Physician [address] [place], [place] [phone] Social History Tobacco Use Types Packs/Day Years [...] on filedocumented in this encounter Care Teams Shag Truck Driver Relationship Specialty Start Date End Date Rosi Gordon MD [address] [place] [address] R[place] [address] PCP - General 01/30/17 11/20/22 documented as of this encounter
--- OUTSIDE RECORDS SUMMARY | 2025-03-13 10:15 | XMS_ITS | Clinical Summary ---
Author Organization [facility] Address [address] [place] [address] Phone Care Team Providers Care Building Construction Engineer Name Role Phone Unavailable Primary Care Provider [...] of *Heart Disease, Family history of *Sudden /[place] under 55, Family history of *Dental caries, [...]
--- OUTSIDE RECORDS SUMMARY | 2025-03-13 10:15 | XMS_ITS | Encounter Summary ---
Author Organization [facility] Address [address] [place] [address] Phone Care Team Providers Care Sales Representatives Name Role Phone Rosi Gordon MD Primary Care Provider Encounter Details Date Type Department Care Team (Late st Contact Info) Description 01/12/2012 Documentation EM Family Medicine [address] [place] [address] Family Medicine, Physician [address] [place], [place] [phone] Social History Tobacco Use Types Packs/Day Years [...] on filedocumented in this encounter Care Teams Sales Representatives Relationship Specialty Start Date End Date Rosi Gorodn MD [address] [place] [address] [place] [address] PCP - General 01/30/17 11/20/22 documented as of this encounter
== END 2025-03-13 09:21 | disposition home or self-care (01) ==
LOC: HO.HUSH 08:53
PROVIDERS: PCP Nurse Practitioner Family; Visit Provider Urology
DX: Z98.52 Vasectomy status (principal)
CPT/HCPCS: 99024

== ENCOUNTER 2025-04-24 11:43 | Outpatient (REF) | payer OTHER, SELFPAY ==
[2025-04-24 13:10] LABS: Alanine Aminotransferase 55 U/L (0-40); Albumin Level 4.9 g/dL (3.5-5.0); Alkaline Phosphatase 58 U/L (39-117); Aspartate Amino Transferase 43 U/L (5-37); Cholesterol 148 mg/dL (<200); HDL Cholesterol 37 mg/dL (>40); Total Protein 7.8 g/dL (6.5-8.0); Triglycerides 106 mg/dL (<150)
--- OUTSIDE RECORDS SUMMARY | 2025-04-24 14:58 | XMS_ITS | Clinical Summary ---
Author Organization [facility] Address [address] [place] [address] Phone Care Team Providers Care Fleet Administrator Name Role Phone Unavailable Primary Care Provider [...] of *Heart Disease, Family history of *Sudden /[place] under 55, Family history of *Dental caries, [...]
--- OUTSIDE RECORDS SUMMARY | 2025-04-24 14:58 | XMS_ITS | Encounter Summary ---
Author Organization [facility] Address [address] [place] [address] Phone Care Team Providers Care Fuel Agent Name Role Phone Rosi Gordon MD Primary Care Provider Encounter Details Date Type Department Care Team (Late st Contact Info) Description 06/14/2013 Documentation EM Family Medicine [address] [place] [address] Family Medicine, Physician [address] [place], [place] [phone] Social History Tobacco Use Types Packs/Day Years [...] on filedocumented in this encounter Care Teams Fuel Agent Relationship Specialty Start Date End Date Rosi Gordon MD [address] [place] [address] [place] [address] PCP - General 01/30/17 11/20/22 documented as of this encounter
--- OUTSIDE RECORDS SUMMARY | 2025-04-24 14:58 | XMS_ITS | Encounter Summary ---
Author Organization [facility] Address [address] [place] [address] Phone Care Team Providers Care Retail Support Associate Name Role Phone Rosi Gordon MD Primary Care Provider Encounter Details Date Type Department Care Team (Late st Contact Info) Description 01/12/2012 Documentation EM Family Medicine [address] [place] [address] Family Medicine, Physician [address] [place], [place] [phone] Social History Tobacco Use Types Packs/Day Years [...] on filedocumented in this encounter Care Teams Retail Support Associate Relationship Specialty Start Date End Date Rosi Gordon MD [address] [place] [address] R[place] [address] PCP - General 01/30/17 11/20/22 documented as of this encounter
--- OUTSIDE RECORDS SUMMARY | 2025-04-24 14:58 | XMS_ITS | Encounter Summary ---
Author Organization [facility] Address [address] [place] [address] Phone Care Team Providers Care Workers Compensation Claims Assistant Name Role Phone Rosi Gordon MD Primary Care Provider Encounter Details Date Type Department Care Team (Late st Contact Info) Description 04/22/2013 Documentation EM Family Medicine [address] [place] [address] Family Medicine, Physician [address] [place], [place] [phone] Social History Tobacco Use Types Packs/Day Years [...] on filedocumented in this encounter Care Teams Workers Compensation Claims Assistant Relationship Specialty Start Date End Date Rsoi Gordon MD [address] [place] [address] R[place] [address] PCP - General 01/30/17 11/20/22 documented as of this encounter
--- OUTSIDE RECORDS SUMMARY | 2025-04-24 14:58 | XMS_ITS | Encounter Summary ---
Author Organization [facility] Address [address] [place] [address] Phone Care Team Providers Care Press Bucker Name Role Phone Rosi Gordon MD Primary Care Provider [phone] Encounter Details Date Type Department Care Team (Late st Contact Info) Description 02/05/2017 Conversion Encounter [facility] [address] [place] [address] Social History Tobacco Use Types Packs/Day Years [...] on filedocumented in this encounter Care Teams Press Bucker Relationship Specialty Start Date End Date Rosi Gordon MD [address] [place] [address] PCP - General 01/30/17 11/20/22 documented as of this encounter
== END 2025-04-24 11:44 | disposition home or self-care (01) ==
LOC: HO.LAB 11:43
PROVIDERS: Visit Provider Nurse Practitioner Family
DX: R74.01 Elevation of levels of liver transaminase levels (principal); E78.5 Hyperlipidemia, unspecified; E55.9 Vitamin D deficiency, unspecified
CPT/HCPCS: 36415; 80061; 80076; 82306

== ENCOUNTER 2025-04-28 14:07 | Outpatient (AMB) | payer OTHER, SELFPAY ==
--- NOTE | 2025-04-28 13:58 | A.OFFPC_ITS ---
Intake Visit Reasons: Tele 2 mos vit d def, transaminitis, dyslipidemia Intake Note: patient here for 2 month follow up on vit D def, transaminitis, and dyslipidemia Conditioner Tumbler Operator Required: No Allergies Seasonal Allergies Allergy (Intermediate, Verified 04/28/25 13:58) Sneezing amoxicillin (AMOXICILLIN) Allergy (Mild, Verified 04/28/25 13:58) HIVES Penicillins (PENICILLINS) Allergy (Mild, Verified 04/28/25 13:58) HIVES penicillin V Allergy (Unknown, Verified 04/28/25 13:58) Swelling Tobacco use date assessed: 04/28/25 Dental Screening Dental Screen Date: 04/28/25 Did you have a dental visit in the last 12 months?: Yes Did you have a dental problem in the last 6 months where you did not have access to dental care?: No Was dental information given to patient?: Patient has dentist HPI HPI Comments History of Present Illness Details 29-year-old male presents for a teleheal th visit for review of recent lab results. He notes that he has been inconsistent in taking vitamin D3. He usually misses several doses during the week. No acute symptoms at this time. 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 Ronald Barajas, Nury Rubi, Cortes Giraldo and colleagues, with an educational stefano from [employer]. Review of Systems Const Details: Denies chills, Denies fatigue, Denies fever(s), Denies headache(s) and Denies weakness Cardiac Denies chest pain, Denies claudication, Denies leg edema, Denies lightheaded ness, Denies palpitations, Denies dyspnea, Denies dyspnea on exertion, Denies orthopnea and Denies other (Loss of consciousness) Resp Denies cough, Denies excessive phlegm production, Denies dyspnea, Denies dyspnea on exertion, Denies snoring and Denies wheezing Physical exam (Primary Care) Tobacco/Smoking Status: Tobacco use Status Tobacco use date assessed 04/28/25 04/28/25 13:59 Patient Tobacco Use Status Never used Tobacco 04/28/25 13:59 e-Cigarette/Vaping Use Never Used 04/28/25 13:59 Thrive Assessment: Date of Thrive Assessment Date Thrive assessed 08/24/24 04/28/25 14:07 Const Other: Patient is alert and oriented x4 Telehealth Telehealth Telehealth Platform: Telephone Location of provider rendering services: practice address Location of patient: address on file Patient Identification confirmed using: Name, : Yes Telehealth method: voice only Patient verbally consented to treatment: Yes Patient verbally consented to billing insurance company: Yes Patient informed of any privacy concerns related to visit: Yes Coding Level of Care Code Tele Est Pt Level 3 (41617) Diagnoses Dyslipidemia E78.5 Vitamin D deficiency E55.9 Transaminitis R74.01 Time Spent (min) 10 Assessment & Plan Assessment & Plan (1) Dyslipidemia: Code(s): E78.5 - Hyperlipidemia, unspecified Category: Medical Plan: Recent HDL level is slightly low, 37. Triglycerides, total cholesterol, and LDL levels are normal. Advised to limit foods high in saturated fat and avoid foods high in trans fat. Routine exercise encouraged. Will monitor lipid panel level annually if clinically indicated. Verbalized understanding and agreed with the plan. (2) Vitamin D deficiency: Code(s): E55.9 - Vitamin D deficiency, unspecified Category: Medical Plan: Recent vitamin-D level is slightly low, 27.3, previous level was 29.7. He has not been consistent with taking vitamin-D 3. Encouraged to take vitamin D3 as prescribed. Repeat vitamin-D blood work a few days before next visit. Follow-up for transfer of care with a new provider and vitamin-D deficiency in 2-3 months. Return sooner with symptoms or concerns. Verbalized understanding and agreed with the plan. (3) Transaminitis: Code(s): R74.01 - Elevation of levels of liver transaminase levels Category: Medical Plan: Recent AST and ALT levels are slightly elevated, 43 and 55 respectively, previous levels were 42 and 66 respectively. Hepatic steatosis is likely. Healthy diet/weight management encouraged. Will monitor lipid panel annually or if clinically indicated. Verbalized understanding and agreed with the plan.
--- OUTSIDE RECORDS SUMMARY | 2025-04-28 15:56 | XMS_ITS | Clinical Summary ---
Author Organization [facility] Address [address] [place] [address] Care Team Providers Care Revenue Collector Name Role Phone Nicole Gonzalez MD Primary Care Provider [phone] Allergies Active Allergy Reactions Severity Noted Date Comments Amoxicillin Anaphylaxis High 12/29/2014 Penicillins Anaphylaxis High 12/29/2014 Seasonal Allergies Runny Nose/Rhinitis 12/30/19 15 Medications No known medications Active Problems Problem Noted Date Seasonal allergies 01/03/2021 Migraine 01/02/2021 Hx of cocaine abuse 08/20/2016 Hx Marijuana use 08/20/2016 Severe obesity (BMI 35.0-39.9) with calvin rbidity 08/20/2016 Resolved Problems Problem Noted Date Resolved Date NO ACTIVE MEDICAL PROBLEMS 08/20 Immunizations Name Administration Dates Next Due COVID-19 (TIMMY AND TIMMY) 09/30/2020 Gardasil 9 (Hpv) 08/23/2019,07/30/2017, 7 Hepatitis-A (>19YRS) 2014 Influenza (> 6 Months) 02/29/2016,05/29/2015 Influenza (>6 Months) Split Preservative Free 02/16/2017 Tdap 01/13/2017,02/29/2016 Family History Medical History Relation Name Comments Hypertension Maternal Grandmother Hypertension Mother noncancerous tu mor in back??; obese MVA Paternal Grandfather Relation Name Status Comments Brother x 4 Alive Father Alive Maternal Grandfather unknown Other Maternal Grandmother Alive Mother Alive Paternal Grandfather Paternal Grandmother unknown Sister x 2 Alive Social History Tobacco Use Types Packs/Day Years Used Date Smoking Tobacco: Former Smokeless Tobacco: Never Tobacco Cessation:Counseling Given: No Comments:started age 15; 1 cig per month; quit ??? Alcohol Use Standard Drinks/Week Comments Yes 0 (1 standard drink = 0.6 oz pur e alcohol) 1-2 drinks every 5 months Education Answer Date Recorded What is the highest level of school you have completed or the highest degree you have received? Some college, no degree 08/23/2019 Sex Assigned at Date Recorded Not on file Last Filed Vital Signs Vital Sign Reading Time Taken Comments Blood Pressure 126/80 01/02/2021 3:14 PM EDT Pulse 92 01/02/2021 3:14 PM EDT Temperature 35.9 C (96.6 F) 01/02/2021 3:14 PM EDT Respiratory Rate 16 01/02/2021 3:14 PM EDT Oxygen Saturation 98% 07/02/2017 10: 37 AM EST Inhaled Oxygen Concentration - - Weight 112.8 kg (248 lb 11.2 oz) 01/02/2021 3:14 PM EDT Height 172.7 cm (5' 8 ) 01/02/2021 3:14 PM EDT Body Mass Index 37.81 01/02/2021 3:14 PM EDT Plan of Treatment Health Maintenance Due Date Last Done Comments BMI CHECK/ADVISE 06/22/2024 01/02/2021, 08/2019, 11/05/2018, Additional history exists DEPRESSION SCREENING/FOLLOWUP 06/22/2024 SOCIAL NEEDS SCREENING 06/22/2024 01/02/2021 CHOLESTEROL SCREENING 08/22/2024 08/23/2019 , 07/02/2017, 08/20/2016 Covid-19 Vaccine (2022-2 4 season) 2025 09/30/2020 INFLUENZA (#1) 2025 08/23/2019 (Refu sed), 02/16/2017, 02/29/2016, Additional history exists BASELINE HEALTH EXAM 18-39 01/02/202601/02, 08/23/2019, 07/02/2017, Additional history exists DTAP/TDAP/TD (3 - Td or Tdap) 01/13/2027 01/13/2017, 02/29/2016 PNEUMOCOCCAL VACCINE FOR HIG H RISK PATIENTS (#1) 11/08/2060 Care Teams Revenue Collector Relationship Specialty Start Date End Date Nicole Gonzalez MD [address] [place] [id number] PCP - General Internal Medicine 12/27/14
--- OUTSIDE RECORDS SUMMARY | 2025-04-28 15:56 | XMS_ITS | Clinical Summary ---
Author Organization [facility] Address [address] [place] [address] Phone Care Team Providers Care Final Inspector Balance Wheel Name Role Phone Unavailable Primary Care Provider [...] of *Heart Disease, Family history of *Sudden /[place] under 55, Family history of *Dental caries, [...] 04/11/1997 Meningococcal Vaccine Aged Out 06/20/2008 No tirno elias eligible based on patient's age to complete this topic HPV Vaccines Completed 08/26/2013, 03/23, 05/07/2012 Hepatitis A Vaccines Completed 2014, 08/27/19 14 Men B Vaccine Aged Out No longer elig ible based on patient's age to complete this topic Pneumococcal Vaccine Aged Out No long er eligible based on patient's age to complete this topic
--- OUTSIDE RECORDS SUMMARY | 2025-04-28 15:56 | XMS_ITS | Encounter Summary ---
Author Organization [facility] Address [address] [place] [address] Phone Care Team Providers Care Courtroom Deputy Name Role Phone Rosi Gordon MD Primary Care Provider [phone] Encounter Details Date Type Department Care Team (Late st Contact Info) Description 02/05/2017 Conversion Encounter [facility] [place] [address] [place] [address] Social History Tobacco Use Types Packs/Day Years [...] on filedocumented in this encounter Care Teams Courtroom Deputy Relationship Specialty Start Date End Date Rosi Gordon MD [address] [place] [address] PCP - General 01/30/17 11/20/22 documented as of this encounter
--- OUTSIDE RECORDS SUMMARY | 2025-04-28 15:56 | XMS_ITS | Encounter Summary ---
Author Organization [facility] Address [address] [place] [phone] Phone Care Team Providers Care Music Store Manager Name Role Phone Rosi Gordon MD Primary Care Provider Encounter Details Date Type Department Care Team (Late st Contact Info) Description 06/14/2013 Documentation EM Family Medicine [address] [place] [address] Family Medicine, Physician [address] [place], [place] [phone] Social History Tobacco Use Types Packs/Day Years [...] on filedocumented in this encounter Care Teams Music Store Manager Relationship Specialty Start Date End Date Rosi Gordon MD [address] [place] [address] RAN[place] [address] PCP - General 01/30/17 11/20/22 documented as of this encounter
--- OUTSIDE RECORDS SUMMARY | 2025-04-28 15:56 | XMS_ITS | Encounter Summary ---
Author Organization [facility] Address [address] [place] [address] Phone Care Team Providers Care Bath Steward Name Role Phone Rosi Gordon MD Primary Care Provider Encounter Details Date Type Department Care Team (Late st Contact Info) Description 04/22/2013 Documentation EM Family Medicine [address] [place] [address] Family Medicine, Physician [address] [place], [place] [phone] Social History Tobacco Use Types Packs/Day Years [...] on filedocumented in this encounter Care Teams Bath Steward Relationship Specialty Start Date End Date Rosi Gordon MD [address] [place] [address] RAN[place] Ed[place]s [address] PCP - General 01/30/17 11/20/22 documented as of this encounter
--- OUTSIDE RECORDS SUMMARY | 2025-04-28 15:56 | XMS_ITS | Encounter Summary ---
Author Organization [facility] Address [address] [place] [address] Care Team Providers Care Veneer Patcher Name Role Phone Nicole Gonzalez MD Primary Care Provider [phone] Encounter Details Date Type Department Care Team Description 02/08/2019 Occupational Therapy Assistant Report Medical Records [address] [place] [address] Ankur Hughes, PA-C Social History Tobacco Use [...] on filedocumented in this encounter Care Teams Veneer Patcher Relationship Specialty Start Date End Date Nicole Gonzalez MD [address] [place], [place] [phone] PCP - General Internal Medicine 12/27/14 documented as of this encounter
--- OUTSIDE RECORDS SUMMARY | 2025-04-28 15:56 | XMS_ITS | Encounter Summary ---
Author Organization [facility] Address [address] [place] [id number] Phone Care Team Providers Care Central Communications Specialist Name Role Phone Rosi Gordon MD Primary Care Provider Encounter Details Date Type Department Care Team (Late st Contact Info) Description 01/12/2012 Documentation EM Family Medicine [address] [place] [address] Family Medicine, Physician [address] [place], [place] [id number] Social History Tobacco Use Types Packs/Day Years [...] on filedocumented in this encounter Care Teams Central Communications Specialist Relationship Specialty Start Date End Date Rosi Gordon MD [address] [place] [address] [place] [id number] PCP - General 01/30/17 11/20/22 documented as of this encounter
== END 2025-04-28 14:53 | disposition home or self-care (01) ==
LOC: HO.HMCFM 14:07
PROVIDERS: PCP Nurse Practitioner Family; Visit Provider Nurse Practitioner Family
DX: E78.5 Hyperlipidemia, unspecified (principal); E55.9 Vitamin D deficiency, unspecified; R74.01 Elevation of levels of liver transaminase levels